=== PATIENT | male | born 1965 | race American Indian/Alaskan Native ===

== ENCOUNTER 2020-03-20 02:13 | Inpatient (IN) | payer OTHER ==
--- NOTE | 2020-03-20 02:31 | Emergency Department Report ---
ED Shortness of Breath HPI - General Chief Complaint: Dyspnea/Respdistress Stated Complaint: RESPIRATORY DISTRESS Time Seen by Provider: 03/20/20 02:25 Source: patient, EMS Mode of arrival: Stretcher Limitations: No Limitations - History of Present Illness Initial Comments: 55-year-old male with a past medical history of morbid obesity, elevated cholest jani, CHF, hypertension, sleep apnea, and lymphedema presents to the hospital complaining of acute onset of shortness of breath about 1 AM. Patient states he was sleeping, woke up coughing, and could not catch his breath. Patient complains of mild chest discomfort due to shortness of breath. Reports that patient was in respiratory distress with room air saturation 84% and tachypneic in the 30s upon their arrival. Patient was placed on CPAP with supplemental oxygen support with improvement in respiratory status. Patient also received sublingual nitroglycerin x1. No Lasix provided. Patient reports compliance with his medications including Lasix. Patient reports a dry cough but denies f ever, loss of sense of taste or smell, Covid exposure, or recent Covid testing. Patient found to be febrile upon ED arrival. He denies tobacco use or previous intubations. - Related Data Home Medications Medication Instructions Recorded Confirmed Last Taken Bumetanide [Bumetanide 2 mg tab] 2 mg PO BID 03/20/20 03/20/20 Unknown Ferrous Sulfate [Iron 325 MG] 325 mg PO QDAY 03/20/20 03/20/20 Unknown ISOSORBIDE MONOnitrate [Imdur ER] 45 mg PO DAILY 03/20/20 03/20/20 Unknown Loratadine [Claritin RAPDIS] 10 mg PO QDAY 03/20/20 03/20/20 Unknown Potassium Chloride [Klor-Con M15] 20 meq PO BID 03/20/20 03/20/20 Unknown Sacubitril/Valsartan [Entresto 97 1 each PO BID 03/20/20 03/20/20 Unknown mg-103 mg Tablet] allopurinoL [Zyloprim] 100 mg PO QDAY 03/20/20 03/20/20 Unknown carvediloL [Coreg] 25 mg PO BID 03/20/20 03/20/20 Unknown Previous Rx's Medication Instructions Recorded Last Taken Type Acetaminophen [Acetaminophen TAB] 650 mg PO Q6H PRN tablet 03/22/20 Unknown Rx Aspirin [Aspirin BABY CHEW TAB] 81 mg PO QDAY #30 tab.chew 03/22/20 Unknown Rx Ferrous Sulfate [Feosol 325 MG tab] 325 mg PO DAILY tablet 03/22/20 Unknown Rx Furosemide [Lasix TAB] 40 mg PO QDAY #30 tablet 03/22/20 Unknown Rx Sacubitril/Valsartan [Entresto 2 each PO BID tablet 03/22/20 Unknown Rx 49-51 mg] Tiotropium [Spiriva] 1 puff IH DAILY cap 03/22/20 Unknown Rx amLODIPine 5 mg PO DAILY #30 tablet 03/22/20 Unknown Rx carvediloL [Coreg] 12.5 mg PO BID #60 tablet 03/22/20 Unknown Rx levoFLOXacin [Levaquin] 750 mg PO QDAY #5 tablet 03/22/20 Unknown Rx Allergies Allergy/AdvReac Type Severity Reaction Status Date / Time No Known Allergies Allergy Verified 02/09/15 18:18 ED Review of Systems ROS: Stated complaint: RESPIRATORY DISTRESS Other details as noted in HPI Comment: All other systems reviewed and negative ED Past Medical Hx - Past Medical History Previous Medical History?: Yes Hx Hypertension: Yes Hx Congestive Heart Failure: Yes Additional medical history: LYMPHEDEMA RIGHT LEG. HIGH CHOLESTEROL. SLEEP APNEA. MORBID OBESITY - Social History Smoking Status: Never Smoker - Medications Home Medications: Home Medications Medication Instructions Recorded Confirmed Last Taken Type Bumetanide [Bumetanide 2 mg tab] 2 mg PO BID 03/20/20 03/20/20 Unknown History Ferrous Sulfate [Iron 325 MG] 325 mg PO QDAY 03/20/20 03/20/20 Unknown History ISOSORBIDE MONOnitrate [Imdur ER] 45 mg PO DAILY 03/20/20 03/20/20 Unknown History Loratadine [Claritin RAPDIS] 10 mg PO QDAY 03/20/20 03/20/20 Unknown History Potassium Chloride [Klor-Con M15] 20 meq PO BID 03/20/20 03/20/20 Unknown History Sacubitril/Valsartan [Entresto 97 1 each PO BID 03/20/20 03/20/20 Unknown History mg-103 mg Tablet] allopurinoL [Zyloprim] 100 mg PO QDAY 03/20/20 03/20/20 Unknown History carvediloL [Coreg] 25 mg PO BID 03/20/20 03/20/20 Unknown History Acetaminophen [Acetaminophen TAB] 650 mg PO Q6H PRN tablet 03/22/20 Unknown Rx Aspirin [Aspirin BABY CHEW TAB] 81 mg PO QDAY #30 tab.chew 03/22/20 Unknown Rx Ferrous Sulfate [Feosol 325 MG tab] 325 mg PO DAILY tablet 03/22/20 Unknown Rx Furosemide [Lasix TAB] 40 mg PO QDAY #30 tablet 03/22/20 Unknown Rx Sacubitril/Valsartan [Entresto 2 each PO BID tablet 03/22/20 Unknown Rx 49-51 mg] Tiotropium [Spiriva] 1 puff IH DAILY cap 03/22/20 Unknown Rx amLODIPine 5 mg PO DAILY #30 tablet 03/22/20 Unknown Rx carvediloL [Coreg] 12.5 mg PO BID #60 tablet 03/22/20 Unknown Rx levoFLOXacin [Levaquin] 750 mg PO QDAY #5 tablet 03/22/20 Unknown Rx ED Physical Exam - General Limitations: No Limitations - Other Other exam information: General: No acute distress Head: Atraumatic Eyes: normal appearance ENT: Moist mucous membranes Neck: Normal appearance, no midline tenderness Chest: Diminished breath sounds bilaterally CV: Tachycardic regular rhythm Abdomen: Soft, normal bowel sounds, nontender, nondistended, no rebound or guarding Back: Normal inspection Extremity: Bilateral lower extremity lymphedema Neuro: Alert O x 3, no facial asymmetry, speech clear, no gross motor sensory deficit Psych: Appropriate behavior Skin: No rash ED Course Vital Signs 03/20/20 03/20/20 03/20/20 02:27 02:29 02:30 Temperature 101.4 F H Pulse Rate 127 H 127 H 125 H Respiratory 31 H 34 H 35 H Rate Blood Pressure 111/47 111/47 Blood Pressure [Left] O2 Sat by Pulse 100 100 100 Oximetry 03/20/20 03/20/20 03/20/20 02:46 02:50 02:52 Temperature Pulse Rate 123 H 124 H Respiratory 31 H 20 Rate Blood Pressure 111/47 Blood Pressure [Left] O2 Sat by Pulse 100 98 Oximetry 03/20/20 03/20/20 03/20/20 02:55 03:00 03:16 Temperature Pulse Rate 127 H 128 H 122 H Respiratory 42 H 28 H 30 H Rate Blood Pressure 111/47 111/47 111/51 Blood Pressure [Left] O2 Sat by Pulse 100 100 100 Oximetry 03/20/20 03/20/20 03/20/20 03:30 03:46 04:00 Temperature Pulse Rate 114 H 117 H 111 H Respiratory 40 H 24 23 Rate Blood Pressure 134/72 134/72 129/75 Blood Pressure [Left] O2 Sat by Pulse 100 100 100 Oximetry 03/20/20 03/20/20 03/20/20 04:16 04:30 04:46 Temperature Pulse Rate 105 H 100 H 101 H Respiratory 30 H 32 H 24 Rate Blood Pressure 129/75 139/77 139/77 Blood Pressure [Left] O2 Sat by Pulse 100 100 100 Oximetry 03/20/20 03/20/20 03/20/20 05:00 05:38 05:46 Temperature Pulse Rate 97 H 98 H 97 H Respiratory 18 26 H 23 Rate Blood Pressure 136/90 144/74 Blood Pressure [Left] O2 Sat by Pulse 100 100 100 Oximetry 03/20/20 03/20/20 03/20/20 06:00 06:16 06:30 Temperature Pulse Rate 98 H 103 H 99 H Respiratory 27 H 25 H 21 Rate Blood Pressure 144/71 144/71 144/71 Blood Pressure [Left] O2 Sat by Pulse 100 100 Oximetry 03/20/20 03/20/20 03/20/20 06:46 07:00 07:16 Temperature Pulse Rate 99 H 93 H 88 Respiratory 28 H 28 H 23 Rate Blood Pressure 133/54 145/91 145/91 Blood Pressure [Left] O2 Sat by Pulse 100 100 100 Oximetry 03/20/20 03/20/20 03/20/20 07:30 07:46 08:16 Temperature Pulse Rate 97 H 85 88 Respiratory 26 H 21 20 Rate Blood Pressure 145/91 152/86 133/82 Blood Pressure [Left] O2 Sat by Pulse 98 100 Oximetry 03/20/20 03/20/20 03/20/20 08:21 08:46 09:00 Temperature Pulse Rate 86 85 81 Respiratory 25 H 21 21 Rate Blood Pressure 133/82 146/97 147/88 Blood Pressure [Left] O2 Sat by Pulse 100 100 Oximetry 03/20/20 03/20/20 03/20/20 09:30 10:00 10:30 Temperature Pulse Rate 84 92 H 80 Respiratory 22 19 17 Rate Blood Pressure 136/89 146/95 139/90 Blood Pressure [Left] O2 Sat by Pulse 100 Oximetry 03/20/20 03/20/20 03/20/20 10:46 11:14 11:20 Temperature Pulse Rate 80 80 87 Respiratory 20 17 28 H Rate Blood Pressure 139/90 129/90 Blood Pressure 129/90 [Left] O2 Sat by Pulse 100 99 100 Oximetry 03/20/20 03/20/20 03/20/20 11:30 11:40 11:50 Temperature Pulse Rate 81 78 74 Respiratory 27 H 17 16 Rate Blood Pressure 144/99 144/99 144/99 Blood Pressure [Left] O2 Sat by Pulse 100 66 L 92 Oximetry 03/20/20 03/20/20 12:00 12:10 Temperature Pulse Rate 78 Respiratory 28 H 21 Rate Blood Pressure 138/96 138/96 Blood Pressure [Left] O2 Sat by Pulse 100 100 Oximetry ED Medical Decision Making - Lab Data Result diagrams: 03/21/20 06:08 03/22/20 05:16 Lab Results 03/20/20 03/20/20 03/20/20 Range/Units 02:40 03:15 03:15 WBC 12.4 H (4.5-11.0) K/mm3 RBC 3.95 (3.65-5.03) M/mm3 Hgb 11.3 L (11.8-15.2) gm/dl Hct 33.7 L (35.5-45.6) % MCV 85 (84-94) fl MCH 29 (28-32) pg MCHC 34 (32-34) % RDW 17.5 H (13.2-15.2) % Plt Count 200 (140-440) K/mm3 Lymph % (Auto) 3.9 L (13.4-35.0) % [place] % (Auto) 7.4 H (0.0-7.3) % Eos % (Auto) 0.1 (0.0-4.3) % Baso % (Auto) 0.3 (0.0-1.8) % Lymph # (Auto) 0.5 L (1.2-5.4) K/mm3 [place] # (Auto) 0.9 H (0.0-0.8) K/mm3 Eos # (Auto) 0.0 (0.0-0.4) K/mm3 Baso # (Auto) 0.0 (0.0-0.1) K/mm3 Seg Neutrophils % 88.3 H (40.0-70.0) % Seg Neutrophils # 11.0 H (1.8-7.7) K/mm3 PT 15.6 H (12.2-14.9) Sec. INR 1.24 H (0.87-1.13) APTT 31.6 (24.2-36.6) Sec. D-Dimer 1504.29 H (0-234) ng/mlDDU ABG pH 7.389 (7.350-7.450) pH Units ABG pCO2 39.0 mm Hg ABG pO2 166.3 H (80.0-90.0) mm Hg ABG HCO3 23.0 (20.0-26.0) mmol/L ABG O2 Saturation 99.0 (95.0-99.0) % ABG O2 Content 16.3 (0.0-44) ABG Base Excess -1.8 (-2.0-3.0) mmol/L ABG Hemoglobin 11.7 L (14.0-18.0) gm/dl ABG Carboxyhemoglobin 1.4 (0.0-5.0) % ABG Methemoglobin 0.7 (0.0-1.5) % Oxyhemoglobin 97.0 (95.0-99.0) % FiO2 50 % Sodium (137-145) mmol/L Potassium (3.6-5.0) mmol/L Chloride (98-107) mmol/L Carbon Dioxide (22-30) mmol/L Anion Gap mmol/L BUN (9-20) mg/dL Creatinine (0.8-1.3) mg/dL Estimated GFR ml/min BUN/Creatinine Ratio % Glucose (75-100) mg/dL Lactic Acid (0.7-2.0) mmol/L Calcium (8.4-10.2) mg/dL Ferritin (30.0-300.0) ng/mL Total Bilirubin (0.1-1.2) mg/dL AST (5-40) units/L ALT (7-56) units/L Alkaline Phosphatase (35-129) units/L Lactate Dehydrogenase (91-180) units/L Troponin T (0.00-0.029) ng/mL C-Reactive Protein (0.00-1.30) mg/dL NT-Pro-B Natriuret Pep (0-900) pg/mL Total Protein (6.3-8.2) g/dL Albumin (3.9-5) g/dL Albumin/Globulin Ratio % Triglycerides (2-149) mg/dL Cholesterol (50-199) mg/dL LDL Cholesterol Direct (50-130) mg/dL HDL Cholesterol (40-59) mg/dL Cholesterol/HDL Ratio % Procalcitonin (<0.15) ng/mL 03/20/20 03/20/20 03/20/20 Range/Units 03:15 03:15 03:15 WBC (4.5-11.0) K/mm3 RBC (3.65-5.03) M/mm3 Hgb (11.8-15.2) gm/dl Hct (35.5-45.6) % MCV (84-94) fl MCH (28-32) pg MCHC (32-34) % RDW (13.2-15.2) % Plt Count (140-440) K/mm3 Lymph % (Auto) (13.4-35.0) % [place] % (Auto) (0.0-7.3) % Eos % (Auto) (0.0-4.3) % Baso % (Auto) (0.0-1.8) % Lymph # (Auto) (1.2-5.4) K/mm3 [place] # (Auto) (0.0-0.8) K/mm3 Eos # (Auto) (0.0-0.4) K/mm3 Baso # (Auto) (0.0-0.1) K/mm3 Seg Neutrophils % (40.0-70.0) % Seg Neutrophils # (1.8-7.7) K/mm3 PT (12.2-14.9) Sec. INR (0.87-1.13) APTT (24.2-36.6) Sec. D-Dimer (0-234) ng/mlDDU ABG pH (7.350-7.450) pH Units ABG pCO2 mm Hg ABG pO2 (80.0-90.0) mm Hg ABG HCO3 (20.0-26.0) mmol/L ABG O2 Saturation (95.0-99.0) % ABG O2 Content (0.0-44) ABG Base Excess (-2.0-3.0) mmol/L ABG Hemoglobin (14.0-18.0) gm/dl ABG Carboxyhemoglobin (0.0-5.0) % ABG Methemoglobin (0.0-1.5) % Oxyhemoglobin (95.0-99.0) % FiO2 % Sodium 138 (137-145) mmol/L Potassium 3.8 (3.6-5.0) mmol/L Chloride 102.4 (98-107) mmol/L Carbon Dioxide 23 (22-30) mmol/L Anion Gap 16 mmol/L BUN 33 H (9-20) mg/dL Creatinine 1.8 H (0.8-1.3) mg/dL Estimated GFR 48 ml/min BUN/Creatinine Ratio 18 % Glucose 142 H (75-100) mg/dL Lactic Acid 1.50 (0.7-2.0) mmol/L Calcium 8.9 (8.4-10.2) mg/dL Ferritin (30.0-300.0) ng/mL Total Bilirubin 0.60 (0.1-1.2) mg/dL AST 34 (5-40) units/L ALT 32 (7-56) units/L Alkaline Phosphatase 84 (35-129) units/L Lactate Dehydrogenase (91-180) units/L Troponin T 0.055 H (0.00-0.029) ng/mL C-Reactive Protein (0.00-1.30) mg/dL NT-Pro-B Natriuret Pep 508.7 (0-900) pg/mL Total Protein 7.9 (6.3-8.2) g/dL Albumin 3.6 L (3.9-5) g/dL Albumin/Globulin Ratio 0.8 % Triglycerides 107 (2-149) mg/dL Cholesterol 141 (50-199) mg/dL LDL Cholesterol Direct 88 (50-130) mg/dL HDL Cholesterol 37 L (40-59) mg/dL Cholesterol/HDL Ratio 3.81 % Procalcitonin (<0.15) ng/mL 03/20/20 03/20/20 03/20/20 Range/Units 03:15 03:15 03:15 WBC (4.5-11.0) K/mm3 RBC (3.65-5.03) M/mm3 Hgb (11.8-15.2) gm/dl Hct (35.5-45.6) % MCV (84-94) fl MCH (28-32) pg MCHC (32-34) % RDW (13.2-15.2) % Plt Count (140-440) K/mm3 Lymph % (Auto) (13.4-35.0) % [place] % (Auto) (0.0-7.3) % Eos % (Auto) (0.0-4.3) % Baso % (Auto) (0.0-1.8) % Lymph # (Auto) (1.2-5.4) K/mm3 [place] # (Auto) (0.0-0.8) K/mm3 Eos # (Auto) (0.0-0.4) K/mm3 Baso # (Auto) (0.0-0.1) K/mm3 Seg Neutrophils % (40.0-70.0) % Seg Neutrophils # (1.8-7.7) K/mm3 PT (12.2-14.9) Sec. INR (0.87-1.13) APTT (24.2-36.6) Sec. D-Dimer (0-234) ng/mlDDU ABG pH (7.350-7.450) pH Units ABG pCO2 mm Hg ABG pO2 (80.0-90.0) mm Hg ABG HCO3 (20.0-26.0) mmol/L ABG O2 Saturation (95.0-99.0) % ABG O2 Content (0.0-44) ABG Base Excess (-2.0-3.0) mmol/L ABG Hemoglobin (14.0-18.0) gm/dl ABG Carboxyhemoglobin (0.0-5.0) % ABG Methemoglobin (0.0-1.5) % Oxyhemoglobin (95.0-99.0) % FiO2 % Sodium (137-145) mmol/L Potassium (3.6-5.0) mmol/L Chloride (98-107) mmol/L Carbon Dioxide (22-30) mmol/L Anion Gap mmol/L BUN (9-20) mg/dL Creatinine (0.8-1.3) mg/dL Estimated GFR ml/min BUN/Creatinine Ratio % Glucose 140 H (75-100) mg/dL Lactic Acid (0.7-2.0) mmol/L Calcium (8.4-10.2) mg/dL Ferritin 451.3 H (30.0-300.0) ng/mL Total Bilirubin (0.1-1.2) mg/dL AST (5-40) units/L ALT (7-56) units/L Alkaline Phosphatase (35-129) units/L Lactate Dehydrogenase 181 H (91-180) units/L Troponin T (0.00-0.029) ng/mL C-Reactive Protein 15.90 H (0.00-1.30) mg/dL NT-Pro-B Natriuret Pep (0-900) pg/mL Total Protein (6.3-8.2) g/dL Albumin (3.9-5) g/dL Albumin/Globulin Ratio % Triglycerides (2-149) mg/dL Cholesterol (50-199) mg/dL LDL Cholesterol Direct (50-130) mg/dL HDL Cholesterol (40-59) mg/dL Cholesterol/HDL Ratio % Procalcitonin 4.62 (<0.15) ng/mL 03/20/20 03/20/20 Range/Units 05:43 05:43 WBC (4.5-11.0) K/mm3 RBC (3.65-5.03) M/mm3 Hgb (11.8-15.2) gm/dl Hct (35.5-45.6) % MCV (84-94) fl MCH (28-32) pg MCHC (32-34) % RDW (13.2-15.2) % Plt Count (140-440) K/mm3 Lymph % (Auto) (13.4-35.0) % [place] % (Auto) (0.0-7.3) % Eos % (Auto) (0.0-4.3) % Baso % (Auto) (0.0-1.8) % Lymph # (Auto) (1.2-5.4) K/mm3 [place] # (Auto) (0.0-0.8) K/mm3 Eos # (Auto) (0.0-0.4) K/mm3 Baso # (Auto) (0.0-0.1) K/mm3 Seg Neutrophils % (40.0-70.0) % Seg Neutrophils # (1.8-7.7) K/mm3 PT (12.2-14.9) Sec. INR (0.87-1.13) APTT (24.2-36.6) Sec. D-Dimer (0-234) ng/mlDDU ABG pH (7.350-7.450) pH Units ABG pCO2 mm Hg ABG pO2 (80.0-90.0) mm Hg ABG HCO3 (20.0-26.0) mmol/L ABG O2 Saturation (95.0-99.0) % ABG O2 Content (0.0-44) ABG Base Excess (-2.0-3.0) mmol/L ABG Hemoglobin (14.0-18.0) gm/dl ABG Carboxyhemoglobin (0.0-5.0) % ABG Methemoglobin (0.0-1.5) % Oxyhemoglobin (95.0-99.0) % FiO2 % Sodium (137-145) mmol/L Potassium (3.6-5.0) mmol/L Chloride (98-107) mmol/L Carbon Dioxide (22-30) mmol/L Anion Gap mmol/L BUN (9-20) mg/dL Creatinine (0.8-1.3) mg/dL Estimated GFR ml/min BUN/Creatinine Ratio % Glucose (75-100) mg/dL Lactic Acid 1.00 (0.7-2.0) mmol/L Calcium (8.4-10.2) mg/dL Ferritin (30.0-300.0) ng/mL Total Bilirubin (0.1-1.2) mg/dL AST (5-40) units/L ALT (7-56) units/L Alkaline Phosphatase (35-129) units/L Lactate Dehydrogenase (91-180) units/L Troponin T 0.079 H D (0.00-0.029) ng/mL C-Reactive Protein (0.00-1.30) mg/dL NT-Pro-B Natriuret Pep (0-900) pg/mL Total Protein (6.3-8.2) g/dL Albumin (3.9-5) g/dL Albumin/Globulin Ratio % Triglycerides (2-149) mg/dL Cholesterol (50-199) mg/dL LDL Cholesterol Direct (50-130) mg/dL HDL Cholesterol (40-59) mg/dL Cholesterol/HDL Ratio % Procalcitonin (<0.15) ng/mL - EKG Data -: EKG Interpreted by Me EKG shows normal: sinus rhythm, ST-T waves (No ST elevation WI) Rate: tachycardia (128) - EKG Data When compared to previous EKG there are: previous EKG unavailable - Radiology Data Radiology results: report reviewed CHEST 1 VIEW INDICATION / CLINICAL INFORMATION: Dyspnea, fever. COMPARISON: Chest radiograph 09/10/2012 FINDINGS: SUPPORT DEVICES: None. HEART / MEDIASTINUM: No significant abnormality. LUNGS / PLEURA: There is suggestion of mild patchy left retrocardiac opacity. The right lung appears clear. No large pleural effusion. No pneumothorax. ADDITIONAL FINDINGS: No significant additional findings. IMPRESSION: 1. Suggestion of mild patchy left retrocardiac opacity which may reflect atelectasis versus pneumonia. - Medical Decision Making 55-year-old male presents to the hospital with respiratory distress and fever. X-ray suggestive of pneumonia or atelectasis patient had an elevated D-dimer with hypoxia therefore CT angiogram performed. Patient treated with Rocephin azithromycin for pneumonia, placed in respiratory isolation, and Covid order set initiated. Decadron 6 mg ordered. BiPAP initiated for respiratory support. Patient has mild elevation in troponin with renal insufficiency. No ST elevation noted on EKG. Repeat troponin pending. Aspirin provided. ID consult ordered Critical Care Time: Yes Critical care time in (mins) excluding proc time.: 35 Critical care attestation.: If time is entered above; I have spent that time in minutes in the direct care of this critically ill patient, excluding procedure time. ED Disposition Clinical Impression: Respiratory failure, Fever, Pneumonia, Renal insufficiency, Elevated troponin Disposition: OP ADMIT IP TO THIS HOSP Is pt being admited?: Yes Condition: Stable
[2020-03-20] MEDS ORDERED: ACETAMINOPHEN 325 MG TAB PO ONE (02:42)
[2020-03-20 02:58] LABS: ABG Base Excess -1.8 mmol/L (-2.0-3.0); ABG Methemoglobin 0.7 % (0.0-1.5); ABG PH 7.389 pH Units (7.350-7.450); ABG PO2 166.3 mm Hg (80.0-90.0)
[2020-03-20 03:40] LABS: Basophils % (Auto) 0.3 % (0.0-1.8); Eosinophils % (Auto) 0.1 % (0.0-4.3); Hematocrit 33.7 % (35.5-45.6); Hemoglobin 11.3 gm/dl (11.8-15.2); Lymphocytes # (Auto) 0.5 K/mm3 (1.2-5.4); Lymphocytes % (Auto) 3.9 % (13.4-35.0); Mean Corpuscular HGB Conc 34 % (32-34); Mean Corpuscular Volume 85 fl (84-94); Monocytes # (Auto) 0.9 K/mm3 (0.0-0.8); Monocytes % (Auto) 7.4 % (0.0-7.3); Platelet Count 200 K/mm3 (140-440); Red Blood Count 3.95 M/mm3 (3.65-5.03); Red Cell Distribution Width 17.5 % (13.2-15.2)
[2020-03-20 03:51] LABS: Albumin 3.6 g/dL (3.9-5); Calcium 8.9 mg/dL (8.4-10.2)
--- NOTE | 2020-03-20 03:51 | XRay Report ---
CHEST 1 VIEW INDICATION / CLINICAL INFORMATION: Dyspnea, fever. COMPARISON: Chest radiograph 09/10/2012 FINDINGS: SUPPORT DEVICES: None. HEART / MEDIASTINUM: No significant abnormality. LUNGS / PLEURA: There is suggestion of mild patchy left retrocardiac opacity. The right lung appears clear. No large pleural effusion. No pneumothorax. ADDITIONAL FINDINGS: No significant additional findings. IMPRESSION: 1. Suggestion of mild patchy left retrocardiac opacity which may reflect atelectasis versus pneumonia . Signer Name: Sammi Varela MD Signed: 03/20/2020 3:47 AM Workstation Name: [id number]
[2020-03-20 03:57] LABS: INR 1.24 (0.87-1.13)
[2020-03-20 03:58] LABS: Partial Thromboplastin Time 31.6 Sec. (24.2-36.6)
[2020-03-20 04:14] LABS: C-Reactive Protein 15.9 mg/dL (0.00-1.30)
[2020-03-20 04:30] LABS: Chol/HDL Ratio 3.81 %
[2020-03-20] MEDS ORDERED: dexAMETHasone 4 MG/ML VIAL IV ONE (05:41)
[2020-03-20] MEDS ORDERED: ASPIRIN 325 MG TAB PO ONE (05:44)
--- NOTE | 2020-03-20 06:07 | Cat Scan Report ---
CTA CHEST WITH IV CONTRAST INDICATION / CLINICAL INFORMATION: P.E. PROTOCOL, Hypoxia, fever, elevated D-dimer. TECHNIQUE: Axial CT images were obtained through the chest after injection of 100 mL Omnipaque 350 IV contrast. 3 plane MIP and/or 3D reconstructions were produced. All CT scans at this location are performed usin g CT dose reduction for ALARA by means of automated exposure control. COMPARISON: Chest radiograph same day FINDINGS: PULMONARY ARTERIES: Evaluation of the subsegmental pulmonary arteries is slightly degraded by motion. No large central or segmental pulmonary embolus identified. THORACIC AORTA: No significant abnormality. HEART: No significant abnormality. CORONARY ARTERIES: No significant calcification. PLEURA: No pleural effusion. No pneumothorax. LYMPH NODES: No significant adenopathy. LUNGS: No acute air space or interstitial disease. Subsegmental atelectatic change. ADDITIONAL FINDINGS: None. UPPER ABDOMEN: No acute findings. Bilateral renal cysts. SKELETAL STRUCTURES: No significant osseous abnormality. IMPRESSION: 1. Evaluation of the subsegmental pulmonary arteries is motion degraded. No large central or segmenta l pulmonary embolus identified. 2. No acute findings. Signer Name: Sammi Varela MD Signed: 03/20/2020 6:03 AM Workstation Name: [id number]
[2020-03-20] MEDS: cefTRIAXone/NS 2 GM/100 ML 2 GM/100 ML BAG IV SCH (07:45)
[2020-03-20] MEDS: AZITHROMYCIN 500 MG in SODIUM CHLORIDE 0.9% 250ML 250 ML IV SCH (08:18)
--- NOTE | 2020-03-20 08:18 | History and Physical Report ---
History of Present Illness Date of examination: 03/20/20 Date of admission: 03/20/20 06:25 History of present illness: 55 year old male with nonischimic cardiomyopathy, HFrEF, HTN, HLD, morbid o besity, NATHAN on CPAP, gout and lymphedema who presented to the ED on 03/20 with a sudden onset of shortness of breath, dry cough, transient midsternal pressure (initially was a 6/10 and has been relieved with nitroglycerin given via EMS) and fever at 0100 which awakened him from sleep. Upon arrival of EMS patient was found to be in respiratory distress with saturation of 85% on room air and tachypneic into the 30s and he was placed on CPAP with improvement in his respiratory status. Patient denies loss of sense of taste or smell, fatigue, chills, nausea/vomiting/diarrhea, hemoptysis, recent weight loss, or night sweats. Patient denies any exposure to sick persons or known exposure to COVID- 19. Work-up in the emergency department revealed acute kidney injury (CR 1.8/33), elevated D-dimer at 1504, leukocytosis at 12.4 and his chest x-ray showed mild patchy left retrocardiac opacity which may reflect atelectasis versus pneumonia, elevated troponin (0.055, 0.079), and elevated COVID-19 inflammatory markers. At the time of examination patient was on a BiPAP but has since been weaned down therefore will be downgraded from IMCU to MedSurg. Patient is a COVID-19 PUI. Infectious disease and cardiology have been consulted. Patient will be admitted to the hospitalist service for sepsis, DANAY, rule out COVID-19, CAP, acute respiratory failure, and elevated troponins. Home medications reconciled and prior visits reviewed. Advance care planning conducted in the emergency department. Past History Past Medical History: COPD, hypertension, other (Lymphedema, morbid obesity, obstructive sleep apnea on home CPAP) Past Surgical History: No surgical history Social history: single, lives with family, full code. denies: smoking, alcohol abuse, prescription drug abuse, IV drug use Family history: diabetes, hypertension Medications and Allergies Allergies Allergy/AdvReac Type Severity Reaction Status Date / Time No Known Allergies Allergy Verified 02/09/15 18:18 Home Medications Medication Instructions Recorded Confirmed Last Taken Type Bumetanide [Bumetanide 2 mg tab] 2 mg PO BID 03/20/20 03/20/20 Unknown History Ferrous Sulfate [Iron 325 MG] 325 mg PO QDAY 03/20/20 03/20/20 Unknown History Furosemide [Lasix] 20 mg PO QDAY 03/20/20 03/20/20 Unknown History ISOSORBIDE MONOnitrate [Imdur ER] 45 mg PO DAILY 03/20/20 03/20/20 Unknown History Loratadine [Claritin RAPDIS] 10 mg PO QDAY 03/20/20 03/20/20 Unknown History Potassium Chloride [Klor-Con M15] 20 meq PO BID 03/20/20 03/20/20 Unknown History Sacubitril/Valsartan [Entresto 97 1 each PO BID 03/20/20 03/20/20 Unknown History mg-103 mg Tablet] allopurinoL [Zyloprim] 100 mg PO QDAY 03/20/20 03/20/20 Unknown History carvediloL [Coreg] 25 mg PO BID 03/20/20 03/20/20 Unknown History Active Meds: Active Medications Amlodipine Besylate (Amlodipine) 5 mg PO DAILY [facility] Dexamethasone (Decadron) 6 mg PO DAILY [facility] Ferrous Sulfate (Feosol) mg PO DAILY [facility] Ceftriaxone Sodium (Rocephin/Ns 2 Gm/100 Ml) 2 gm in 100 mls @ 200 mls/hr IV Q24HR@0600 [facility]; Protocol Azithromycin 500 mg/ Sodium (Chloride) 250 mls @ 250 mls/hr IV Q24HR@0600 [facility]; Protocol Miscellaneous Medication (Omeprazole [Prilosec]) 40 mg PO DAILY [facility] Miscellaneous Medication (Simvastatin [Simvastatin]) 1 tab PO DAILY [facility] Tiotropium [place] (Spiriva) 1 puff IH DAILY [facility] Review of Systems Constitutional: fever, no weight loss, no weight gain, no chills, no sweats, no night sweats, no anorexia, no fatigue, no weakness, no malaise, no lethargy Ears, nose, mouth and throat: no ear pain, no ear discharge, no tinnitis, no decreased hearing, no nose pain, no nasal congestion, no nasal discharge, no sinus pressure, no sinus pain, no epistaxis, no bleeding gums, no dental pain, no mouth pain, no dysphagia, no hoarseness, no sore throat, no post-nasal drip Cardiovascular: chest pain, shortness of breath, high blood pressure, leg edema, no orthopnea, no palpitations, no rapid/irregular heart beat, no edema, no syncope, no lightheadedness, no dyspnea on exertion, no paroxysmal nocturnal dyspnea, no claudication Respiratory: cough, shortness of breath, sleep apnea, no cough with sputum, no excessive sputum, no hemoptysis, no dyspnea on exertion, no congestion, no wheezing, no pleurisy, no pain, no pain on inspiration, no home oxygen Gastrointestinal: no abdominal pain, no nausea, no vomiting, no diarrhea, no constipation, no change in bowel habits, no hematemesis, no coffee ground emesis, no BRBPR, no melena, no hematochezia, no loss of appetite, no heartburn Genitourinary Male: no hematuria, no flank pain, no discharge, no urinary frequency, no urinary hesitancy, no nocturia, no polyuria Rectal: no incontinence, no bleeding Musculoskeletal: no neck stiffness, no neck pain, no shooting arm pain, no arm numbness/tingling, no low back pain, no shooting leg pain, no leg numbness/tingling, no redness of joints, no hot joints, no frequent falls, no fractures Integumentary: no rash, no pruritis, no redness, no sores, no wounds Neurological: no head injury, no transient paralysis, no paralysis, no weakness, no parathesias, no numbness, no tingling, no seizures, no syncope, no tremors, no vertigo, no headaches, no confusion Psychiatric: no anxiety, no memory loss, no change in sleep habits, no sleep disturbances, no insomnia, no hypersomnia, no change in appetite, no change in libido, no suicidal ideation Endocrine: no cold intolerance, no heat intolerance, no polyphagia, no excessive thirst, no polydipsia, no polyuria, no nocturia, no excessive sweating, no flushing, no weight change, no increase in ring/shoe/hat size, no palpatations Hematologic/Lymphatic: no easy bruising, no easy bleeding Allergic/Immunologic: no urticaria, no allergic rhinitis, no wheezing Exam - Constitutional Vitals: Temp Pulse Resp BP Pulse Ox 101.4 F H 97 H 26 H 145/91 98 03/20/20 02:27 03/20/20 07:30 03/20/20 07:30 03/20/20 07:30 03/20/20 07:30 General appearance: Present: no acute distress - EENT Eyes: Present: PERRL, EOM intact ENT: hearing intact, clear oral mucosa, dentition normal - Neck Neck: Present: normal ROM - Respiratory Respiratory effort: normal Respiratory: bilateral: diminished - Cardiovascular Rhythm: regular Heart Sounds: Present: S1 & S2. Absent: systolic murmur, diastolic murmur - Extremities Extremities: no ischemia, pulses intact, pulses symmetrical, normal temperature, normal color, Full ROM Extremity abnormal: edema - Peripheral Assessment Bilateral Lower Extremity Edema Type: Non-pitting Capillary Refill: < 3 seconds Skin Temperature: Cool Peripheral Pulses: within normal limits - Abdominal General gastrointestinal: Present: soft, non-tender, non-distended, normal bowel sounds - Integumentary Integumentary: Present: clear, warm, dry - Musculoskeletal Musculoskeletal: strength equal bilaterally - Psychiatric Psychiatric: appropriate mood/affect, cooperative - Neurologic Neurologic: no CNII-XII intact, no focal deficits, moves all extremities - Allied Health Allied health notes reviewed: nursing HEART Score - HEART Score History: Moderately suspicious EKG: Normal Age: 45-65 Risk factors: > 3 risk factors or hx of atherosclerotic disease Troponin: Troponin T 0.079 ng/mL (0.00-0.029) H D 03/20/20 05:43 Troponin: 1-3x normal limit HEART Score: 5 Results - Labs CBC & Chem 7: 03/20/20 03:15 03/20/20 03:15 Labs: Laboratory Last Values WBC 12.4 K/mm3 (4.5-11.0) H 03/20/20 03:15 RBC 3.95 M/mm3 (3.65-5.03) 03/20/20 03:15 Hgb 11.3 gm/dl (11.8-15.2) L 03/20/20 03:15 Hct 33.7 % (35.5-45.6) L 03/20/20 03:15 MCV 85 fl (84-94) 03/20/20 03:15 MCH 29 pg (28-32) 03/20/20 03:15 MCHC 34 % (32-34) 03/20/20 03:15 RDW 17.5 % (13.2-15.2) H 03/20/20 03:15 Plt Count 200 K/mm3 (140-440) 03/20/20 03:15 Lymph % (Auto) 3.9 % (13.4-35.0) L 03/20/20 03:15 [place] % (Auto) 7.4 % (0.0-7.3) H 03/20/20 03:15 Eos % (Auto) 0.1 % (0.0-4.3) 03/20/20 03:15 Baso % (Auto) 0.3 % (0.0-1.8) 03/20/20 03:15 Lymph # (Auto) 0.5 K/mm3 (1.2-5.4) L 03/20/20 03:15 [place] # (Auto) 0.9 K/mm3 (0.0-0.8) H 03/20/20 03:15 Eos # (Auto) 0.0 K/mm3 (0.0-0.4) 03/20/20 03:15 Baso # (Auto) 0.0 K/mm3 (0.0-0.1) 03/20/20 03:15 Seg Neutrophils % 88.3 % (40.0-70.0) H 03/20/20 03:15 Seg Neutrophils # 11.0 K/mm3 (1.8-7.7) H 03/20/20 03:15 PT 15.6 Sec. (12.2-14.9) H 03/20/20 03:15 INR 1.24 (0.87-1.13) H 03/20/20 03:15 APTT 31.6 Sec. (24.2-36.6) 03/20/20 03:15 D-Dimer 1504.29 ng/mlDDU (0-234) H 03/20/20 03:15 ABG pH 7.389 pH Units (7.350-7.450) 03/20/20 02:40 ABG pCO2 39.0 mm Hg 03/20/20 02:40 ABG pO2 166.3 mm Hg (80.0-90.0) H 03/20/20 02:40 ABG HCO3 23.0 mmol/L (20.0-26.0) 03/20/20 02:40 ABG O2 Saturation 99.0 % (95.0-99.0) 03/20/20 02:40 ABG O2 Content 16.3 (0.0-44) 03/20/20 02:40 ABG Base Excess -1.8 mmol/L (-2.0-3.0) 03/20/20 02:40 ABG Hemoglobin 11.7 gm/dl (14.0-18.0) L 03/20/20 02:40 ABG Carboxyhemoglobin 1.4 % (0.0-5.0) 03/20/20 02:40 ABG Methemoglobin 0.7 % (0.0-1.5) 03/20/20 02:40 Oxyhemoglobin 97.0 % (95.0-99.0) 03/20/20 02:40 FiO2 50 % 03/20/20 02:40 Sodium 138 mmol/L (137-145) 03/20/20 03:15 Potassium 3.8 mmol/L (3.6-5.0) 03/20/20 03:15 Chloride 102.4 mmol/L (98-107) 03/20/20 03:15 Carbon Dioxide 23 mmol/L (22-30) 03/20/20 03:15 Anion Gap 16 mmol/L 03/20/20 03:15 BUN 33 mg/dL (9-20) H 03/20/20 03:15 Creatinine 1.8 mg/dL (0.8-1.3) H 03/20/20 03:15 Estimated GFR 48 ml/min 03/20/20 03:15 BUN/Creatinine Ratio 18 % 03/20/20 03:15 Glucose 140 mg/dL (75-100) H 03/20/20 03:15 Glucose 142 mg/dL (75-100) H 03/20/20 03:15 Lactic Acid 1.00 mmol/L (0.7-2.0) 03/20/20 05:43 Calcium 8.9 mg/dL (8.4-10.2) 03/20/20 03:15 Ferritin 451.3 ng/mL (30.0-300.0) H 03/20/20 03:15 Total Bilirubin 0.60 mg/dL (0.1-1.2) 03/20/20 03:15 AST 34 units/L (5-40) 03/20/20 03:15 ALT 32 units/L (7-56) 03/20/20 03:15 Alkaline Phosphatase 84 units/L (35-129) 03/20/20 03:15 Lactate Dehydrogenase 181 units/L (91-180) H 03/20/20 03:15 Troponin T 0.079 ng/mL (0.00-0.029) H D 03/20/20 05:43 C-Reactive Protein 15.90 mg/dL (0.00-1.30) H 03/20/20 03:15 NT-Pro-B Natriuret Pep 508.7 pg/mL (0-900) 03/20/20 03:15 Total Protein 7.9 g/dL (6.3-8.2) 03/20/20 03:15 Albumin 3.6 g/dL (3.9-5) L 03/20/20 03:15 Albumin/Globulin Ratio 0.8 % 03/20/20 03:15 Triglycerides 107 mg/dL (2-149) 03/20/20 03:15 Cholesterol 141 mg/dL (50-199) 03/20/20 03:15 LDL Cholesterol Direct 88 mg/dL (50-130) 03/20/20 03:15 HDL Cholesterol 37 mg/dL (40-59) L 03/20/20 03:15 Cholesterol/HDL Ratio 3.81 % 03/20/20 03:15 Microbiology: Microbiology 03/20/20 03:15 Peripheral/Venous Blood Culture - Preliminary Culture in Progress 03/20/20 02:49 Peripheral/Venous Blood Culture - Preliminary Culture in Progress - Imaging and Cardiology Chest x-ray: report reviewed, image reviewed CT scan - chest: report reviewed - Diagnostic Impressions Diagnostic Impressions: 03/20 CXR shows suggestion of a mild patchy left retrocardiac opacity which may reflect atelectasis versus pneumonia with no large pleural effusion or pneumothorax 03/30 CTA chest shows no large central or segmental pulmonary embolism identified, bilateral renal cysts with no acute findings Shukla/IV: IV Catheter Type [Left INT / Saline Lock Antecubital] Assessment and Plan - Patient Problems (1) Sepsis Current Visit: Yes Status: Acute Plan to address problem: Presented with tachycardia, tachypnea, acute on chronic respiratory failure, febrile, leukocytosis, acute kidney injury and PNA on cxr Infectious disease consulted Initiated on antibiotic therapy Trend CBC 03/20 BC x2 culture in progress (2) Person under investigation for COVID-19 Current Visit: Yes Status: Acute Plan to address problem: 03/20 COVID-19 PCR pending 03/20 CXR shows suggestion of a mild patchy left retrocardiac opacity which may reflect atelectasis versus pneumonia with no large pleural effusion or pneumothorax. Infectious disease consulted Antibiotic therapy Trend inflammatory markers OOB 3 times daily Prone to sleep Supplemental oxygenation as needed Pulmonary hygiene S/p dexamethasone in the ED Dexamethasone 6 mg p.o. daily for 10 days (03/20 through 03/30) Anticoagulation per protocol (3) Acute kidney injury Current Visit: Yes Status: Acute Plan to address problem: Presented with creatinine/BUN 1. Unknown baseline Patient is on ACEi and diuretic therapy for CHF at home Strict intake and output Trend BMP Daily weights Consult nephrology if decreasing Hold nephrotoxic medications at this time Renally dose medications (4) Elevated troponin Current Visit: Yes Status: Acute Plan to address problem: Presented with transient midsternal chest pressure which was relieved with nitroglycerin 03/20 troponin 0 0.055, 0.079 Cardiology consulted Trend troponin ECG as needed (5) Pneumonia Current Visit: Yes Status: Suspected Qualifiers: Laterality: left Plan to address problem: 03/20 CXR shows suggestion of a mild patchy left retrocardiac opacity which may reflect atelectasis versus pneumonia with no large pleural effusion or pneumothorax Antibiotic therapy Covid PUI Supplemental oxygen as needed Pulmonary hygiene (6) Acute respiratory failure Current Visit: Yes Status: Acute Qualifiers: Respiratory failure complication: hypoxia Qualified Code(s): J96.01 - Acute respiratory failure with hypoxia Plan to address problem: Patient was hypoxic and tachypneic upon arrival of EMS Patient was placed on BiPAP by EMS and since has been weaned off to nasal cannula in the emergency department Supplemental oxygen as needed Pulmonary hygiene Patient does not use any oxygen at home however has NATHAN and uses home CPAP at night (7) Acute on chronic HFrEF (heart failure with reduced ejection fraction) Current Visit: Yes Status: Acute Plan to address problem: Cardiology consult 03/20 proBNP 508 IV Lasix, resume home beta-jose Per cardiology: 04/2018 TTE showed EF of 20 to 25%, mild MR, mild TR, RA mildly dilated 05/2018 left and right heart cath showed normal coronaries, mild pulmonary hypertension, normal cardiac output and cardiac index Follow-up TTE post COVID-19 results (8) Elevated d-dimer Current Visit: Yes Status: Acute Plan to address problem: Presented with a D-dimer of 1504 03/30 CTA chest shows no large central or segmental pulmonary embolism identified, bilateral renal cysts with no acute findings. Trend COVID-19 found to markers including D-dimer Prophylaxis per COVID-19 protocol (9) Morbid obesity with BMI of 50.0-59.9, adult Current Visit: No Status: Chronic Plan to address problem: Weight loss counseling Dietary modifications and increase physical activity upon discharge Consider bariatric surgery if warranted (10) NATHAN (obstructive sleep apnea) Current Visit: Yes Status: Chronic Plan to address problem: Continue home CPAP machine at night (11) GERD (gastroesophageal reflux disease) Current Visit: No Status: Chronic Plan to address problem: Continue home Protonix (12) HTN (hypertension) Current Visit: Yes Status: Chronic Plan to address problem: Hold Entresto in setting of acute kidney injury Resume home metoprolol and amlodipine IV Lasix therapy for now Blood pressure monitoring per protocol (13) Lymphedema Current Visit: Yes Status: Chronic Plan to address problem: Supportive care Elevate bilateral lower extremities while in bed (14) Gout Current Visit: Yes Status: Chronic Plan to address problem: Resume home allopurinol Supportive care (15) HLD (hyperlipidemia) Current Visit: Yes Status: Chronic Plan to address problem: Resume home statin therapy (16) DVT prophylaxis Current Visit: Yes Status: Acute Plan to address problem: Heparin subcu in setting of DANAY SCDs to bilateral extremities while in bed (17) Full code status Current Visit: Yes Status: Acute
[2020-03-20] MEDS ORDERED: ACETAMINOPHEN 325 MG TAB PO PRN (09:18)
[2020-03-20] MEDS ORDERED: ALBUTEROL 2.5 MG/3 ML NEBU IH PRN (09:21)
[2020-03-20] MEDS ORDERED: cefTRIAXone/NS 2 GM/100 ML 2 GM/100 ML BAG IV SCH (10:00)
[2020-03-20] MEDS ORDERED: OMEPRAZOLE 40 MG PO SCH (10:00)
[2020-03-20] MEDS ORDERED: AZITHROMYCIN 500 MG in SODIUM CHLORIDE 0.9% 250ML 250 ML IV SCH (10:00)
[2020-03-20] MEDS ORDERED: amLODIPine 5 MG TAB PO SCH (10:00)
[2020-03-20] MEDS ORDERED: SIMVASTATIN PO SCH (10:00)
--- NOTE | 2020-03-20 10:16 | Consultation ---
History of Present Illness Consult date: 03/20/20 Requesting physician: PATRICIA BOO Consult reason: congestive heart failure, elevated troponin History of present illness: The pt is a 55-year-old male with a past medical history of NICMP, normal coronaries via LHC 05/2018, HFrEF, HTN, HLP, morbid obesity, sleep apnea, lymphedema. He has been followed in our office in the past by Dr. Dickey (last seen 09/2017). He presented with c/o acute onset SOB since 1AM today. Patient states he was sleeping, woke up coughing, and could not catch his breath. EMS reported that patient was in respiratory distress with room air saturation 84% and tachypneic in the 30s upon their arrival. Patient was placed on CPAP with supplemental oxygen support with improvement in respiratory status. Patient reports compliance with his medications including Lasix. Patient reports a dry cough but denies fever, loss of sense of taste or smell, Covid exposure, or recent Covid testing. Patient found to be febrile upon ED arrival, he is currently COVID-19 PUI. tte done 04/2018 showed EF 20-25%, mild MR, mild TR, RA mildly dilated. LHC and RHC done 05/2018 showed normal coronaries, mild pulm HTN, normal CO & CI. Past History Past Medical History: other (as per HPI) Medications and Allergies Allergies Allergy/AdvReac Type Severity Reaction Status Date / Time No Known Allergies Allergy Verified 02/09/15 18:18 Home Medications Medication Instructions Recorded Confirmed Last Taken Type Bumetanide [Bumetanide 2 mg tab] 2 mg PO BID 03/20/20 03/20/20 Unknown History Ferrous Sulfate [Iron 325 MG] 325 mg PO QDAY 03/20/20 03/20/20 Unknown History Furosemide [Lasix] 20 mg PO QDAY 03/20/20 03/20/20 Unknown History ISOSORBIDE MONOnitrate [Imdur ER] 45 mg PO DAILY 03/20/20 03/20/20 Unknown History Loratadine [Claritin RAPDIS] 10 mg PO QDAY 03/20/20 03/20/20 Unknown History Potassium Chloride [Klor-Con M15] 20 meq PO BID 03/20/20 03/20/20 Unknown History Sacubitril/Valsartan [Entresto 97 1 each PO BID 03/20/20 03/20/20 Unknown History mg-103 mg Tablet] allopurinoL [Zyloprim] 100 mg PO QDAY 03/20/20 03/20/20 Unknown History carvediloL [Coreg] 25 mg PO BID 03/20/20 03/20/20 Unknown History Active Meds: Active Medications Acetaminophen (Tylenol) 650 mg PO Q6H PRN PRN Reason: Pain MILD(1-3)/Fever >100.5/[place]ORD[place] Albuterol (Proventil) 2.5 mg IH Q4HRT PRN PRN Reason: Shortness Of Breath Amlodipine Besylate (Amlodipine) 5 mg PO DAILY [facility] Dexamethasone (Decadron) 6 mg PO DAILY [facility] Stop: 03/29/20 10:01 Ferrous Sulfate (Feosol) 325 mg PO DAILY [facility] Heparin Sodium (Porcine) (Heparin) 5,000 unit SUB-Q Q8HR [facility] Ceftriaxone Sodium (Rocephin/Ns 2 Gm/100 Ml) 2 gm in 100 mls @ 200 mls/hr IV Q24HR@0600 [facility]; Protocol Last Admin: 03/20/20 07:45 Dose: 200 mls/hr Documented by: Azithromycin 500 mg/ Sodium (Chloride) 250 mls @ 250 mls/hr IV Q24HR@0600 [facility]; Protocol Stop: 03/24/20 06:59 Last Admin: 03/20/20 08:18 Dose: 250 mls/hr Documented by: Pantoprazole Sodium (Protonix) 40 mg PO DAILY [facility] Pravastatin Sodium (Pravachol) 40 mg PO QHS [facility] Sodium Chloride (Sodium Chloride Flush Syringe 10 Ml) 10 ml IV BID [facility] Sodium Chloride (Sodium Chloride Flush Syringe 10 Ml) 10 ml IV PRN PRN PRN Reason: LINE FLUSH Tiotropium [place] (Spiriva) 1 puff IH DAILY [facility] Review of Systems Constitutional: no weight loss, no weight gain, no fever, no chills, no sweats Ears, nose, mouth and throat: no ear pain, no nose pain, no sinus pressure, no sinus pain Cardiovascular: orthopnea, shortness of breath, dyspnea on exertion, no chest pain, no palpitations, no rapid/irregular heart beat, no syncope, no lig htheadedness Respiratory: shortness of breath, dyspnea on exertion, no congestion, no wheezing, no pain on inspiration Gastrointestinal: no abdominal pain, no nausea, no vomiting, no diarrhea, no constipation, no change in bowel habits Genitourinary Male: no dysuria, no hematuria, no flank pain, no discharge, no urinary frequency, no urinary hesitancy Musculoskeletal: no neck stiffness, no neck pain, no shooting arm pain, no arm numbness/tingling, no low back pain Integumentary: no rash, no pruritis, no redness, no sores, no wounds Neurological: no head injury, no paralysis, no weakness, no parathesias, no numbness, no tingling, no seizures, no syncope Psychiatric: no anxiety Endocrine: no cold intolerance, no heat intolerance Hematologic/Lymphatic: no easy bruising Physical Examination Vital Signs Temp Pulse Resp BP Pulse Ox 101.4 F H 127 H 31 H 111/47 100 03/20/20 02:27 03/20/20 02:27 03/20/20 02:27 03/20/20 02:27 03/20/20 02:27 General appearance: no acute distress HEENT: Positive: PERRL, Normocephaly, Mucus Membranes Moist Neck: Positive: neck supple, trachea midline Cardiac: Positive: Reg Rate and Rhythm, S1/S2 Lungs: Positive: Decreased Breath Sounds Neuro: Positive: Grossly Intact Abdomen: Negative: Tender Skin: Negative: Rash Musculoskeletal: No Pain Extremities: Absent: edema Results 03/20/20 03:15 03/20/20 03:15 Cardiac Enzymes 03/20/20 03/20/20 Range/Units 03:15 03:15 AST 34 (5-40) units/L Lactate Dehydrogenase 181 H (91-180) units/L Coagulation 03/20/20 Range/Units 03:15 PT 15.6 H (12.2-14.9) Sec. INR 1.24 H (0.87-1.13) APTT 31.6 (24.2-36.6) Sec. Lipids 03/20/20 Range/Units 03:15 Triglycerides 107 (2-149) mg/dL Cholesterol 141 (50-199) mg/dL HDL Cholesterol 37 L (40-59) mg/dL Cholesterol/HDL Ratio 3.81 % CBC 03/20/20 Range/Units 03:15 WBC 12.4 H (4.5-11.0) K/mm3 RBC 3.95 (3.65-5.03) M/mm3 Hgb 11.3 L (11.8-15.2) gm/dl Hct 33.7 L (35.5-45.6) % Plt Count 200 (140-440) K/mm3 Lymph # (Auto) 0.5 L (1.2-5.4) K/mm3 [place] # (Auto) 0.9 H (0.0-0.8) K/mm3 Eos # (Auto) 0.0 (0.0-0.4) K/mm3 Baso # (Auto) 0.0 (0.0-0.1) K/mm3 Comprehensive Metabolic Panel 03/20/20 03/20/20 Range/Units 03:15 03:15 Sodium 138 (137-145) mmol/L Potassium 3.8 (3.6-5.0) mmol/L Chloride 102.4 (98-107) mmol/L Carbon Dioxide 23 (22-30) mmol/L BUN 33 H (9-20) mg/dL Creatinine 1.8 H (0.8-1.3) mg/dL Glucose 142 H 140 H (75-100) mg/dL Calcium 8.9 (8.4-10.2) mg/dL AST 34 (5-40) units/L ALT 32 (7-56) units/L Alkaline Phosphatase 84 (35-129) units/L Total Protein 7.9 (6.3-8.2) g/dL Albumin 3.6 L (3.9-5) g/dL - Imaging and Cardiology Echo: report reviewed (04/2018 showed EF 20-25%, mild MR, mild TR, RA mildly dilated. ) Cardiac cath: report reviewed ( 05/2018 showed normal coronaries, mild pulm HTN, normal CO & CI. ) EKG: report reviewed, image reviewed EKG interpretations - Telemetry EKG Rhythm: Sinus Tachycardia - EKG Sinus rhythms and dysrhythmias: sinus rhythm Assessment and Plan Resume home coreg, hold home Entresto in setting of renal insufficiency. Initiate IV lasix daily and f/u BMP in AM. Minimal troponin elevation appears nonspecific at this time. Cont to trend Pasquale and f/u ECG in AM. Management of suspected PNA per primary team. COVID-19 testing is pending. Plan to f/u tte pending COVID testing result. Will follow. The patient has been seen in conjunction with Dr. Leavitt who agrees with the assessment and plan of care. - Patient Problems (1) Acute on chronic HFrEF (heart failure with reduced ejection fraction) Current Visit: Yes Status: Acute (2) NICM (nonischemic cardiomyopathy) Current Visit: Yes Status: Acute (3) Normal coronary arteries Current Visit: Yes Status: Chronic (4) Person under investigation for COVID-19 Current Visit: Yes Status: Acute (5) Pneumonia Current Visit: Yes Status: Suspected (6) Acute kidney injury Current Visit: Yes Status: Acute (7) Elevated troponin Current Visit: Yes Status: Acute (8) HTN (hypertension) Current Visit: Yes Status: Chronic (9) Lymphedema Current Visit: Yes Status: Chronic (10) Sleep apnea Current Visit: Yes Status: Chronic (11) Obesity Current Visit: Yes Status: Chronic
[2020-03-20 11:24] LABS: Bacteria,Urine 1+ /HPF (Negative); Bilirubin,Urine NEG (Negative); Blood,Urine MOD (Negative); Color,Urine Yellow (Yellow); Mucus,Urine FEW /HPF
[2020-03-20] MEDS: TIOTROPIUM 18 MCG CAP INHALATION IH SCH (13:08)
[2020-03-20] MEDS: FUROSEMIDE 40 MG/4 ML INJ IV SCH (14:07)
[2020-03-20] MEDS: PANTOPRAZOLE 40 MG TAB PO SCH (14:07)
[2020-03-20] MEDS: FERROUS SULFATE 325 MG TAB PO SCH (14:07)
[2020-03-20] MEDS: carvediloL 12.5 MG TAB PO SCH ×2 (14:08→21:21)
[2020-03-20] MEDS: amLODIPine 5 MG TAB PO SCH (14:08)
[2020-03-20] MEDS: allopurinoL 100 MG TAB PO SCH (14:09)
[2020-03-20] MEDS: HEPARIN 5,000 UNIT/1 ML VIAL SUB-Q SCH ×2 (14:10→21:21)
[2020-03-20] MEDS: PRAVASTATIN 40 MG TAB PO SCH (21:21)
[2020-03-20] MEDS ORDERED: carvediloL 25 MG TAB PO SCH (22:00)
[2020-03-21] MEDS: AZITHROMYCIN 500 MG in SODIUM CHLORIDE 0.9% 250ML 250 ML IV SCH (05:40)
[2020-03-21] MEDS: cefTRIAXone/NS 2 GM/100 ML 2 GM/100 ML BAG IV SCH (05:40)
[2020-03-21] MEDS: HEPARIN 5,000 UNIT/1 ML VIAL SUB-Q SCH ×3 (05:41→22:46)
[2020-03-21 06:30] LABS: Basophils % (Auto) 0.1 % (0.0-1.8); Eosinophils % (Auto) 0.1 % (0.0-4.3); Hemoglobin 10.8 gm/dl (11.8-15.2); Lymphocytes # (Auto) 0.7 K/mm3 (1.2-5.4); Lymphocytes % (Auto) 7.4 % (13.4-35.0); Mean Corpuscular HGB Conc 33 % (32-34); Mean Corpuscular Volume 88 fl (84-94); Monocytes # (Auto) 0.9 K/mm3 (0.0-0.8); Monocytes % (Auto) 8.8 % (0.0-7.3); Platelet Count 220 K/mm3 (140-440); Red Blood Count 3.76 M/mm3 (3.65-5.03); Red Cell Distribution Width 17.6 % (13.2-15.2)
[2020-03-21 06:52] LABS: BUN/Creatinine Ratio 23; Blood Urea Nitrogen 30 mg/dL (9-20); Hemolysis Index 0
[2020-03-21] MEDS: TIOTROPIUM 18 MCG CAP INHALATION IH SCH ×2 (08:49→13:33)
--- NOTE | 2020-03-21 09:17 | Consultation ---
History of Present Illness - Reason for Consult Consult date: 03/21/20 r/o COVID Requesting physician: MARLENA QUINTERO - History of Present Illness 55 years old male with history of cardiomyopathy, hypertension, hyperlipidemia, morbid obesity, obstructive sleep apnea on CPAP, gout, lymphedema, admitted on 03/17/2020 secondary to acute onset of shortness of breath, dry cough and chest pressure associated with a fever, patient woke up from sleep with symptoms. Called EMS, upon arrival O2 sats down to 85%. Denies any loss of smell or taste, nausea, vomiting, diarrhea. Denies any exposure to COVID-19 infected people. On arrival, temperature 101.4, HR 127, RR 21, O2 sat 100%, BP 111/47. Initial WBC 12.4. Creatinine is 1.8. Urinalysis 35 WBCs with small leukocyte esterase. D-dimer 5004. Ferritin 451. SARS-CoV-2 PCR negative. CTA without consolidation or pulmonary embolism. Chest x-ray shows left retrocardiac infiltrate. Review of Systems: reviewed ED and H&P notes. Limited due to PPE conservation strategy Past History Past Medical History: COPD, hypertension, other (Lymphedema, morbid obesity, obstructive sleep apnea on home CPAP) Past Surgical History: No surgical history Social history: single, lives with family, full code. denies: smoking, alcohol abuse, prescription drug abuse, IV drug use Family history: diabetes, hypertension Medications and Allergies Allergies Allergy/AdvReac Type Severity Reaction Status Date / Time No Known Allergies Allergy Verified 02/09/15 18:18 Home Medications Medication Instructions Recorded Confirmed Last Taken Type Bumetanide [Bumetanide 2 mg tab] 2 mg PO BID 03/20/20 03/20/20 Unknown History Ferrous Sulfate [Iron 325 MG] 325 mg PO QDAY 03/20/20 03/20/20 Unknown History Furosemide [Lasix] 20 mg PO QDAY 03/20/20 03/20/20 Unknown History ISOSORBIDE MONOnitrate [Imdur ER] 45 mg PO DAILY 03/20/20 03/20/20 Unknown History Loratadine [Claritin RAPDIS] 10 mg PO QDAY 03/20/20 03/20/20 Unknown History Potassium Chloride [Klor-Con M15] 20 meq PO BID 03/20/20 03/20/20 Unknown History Sacubitril/Valsartan [Entresto 97 1 each PO BID 03/20/20 03/20/20 Unknown History mg-103 mg Tablet] allopurinoL [Zyloprim] 100 mg PO QDAY 03/20/20 03/20/20 Unknown History carvediloL [Coreg] 25 mg PO BID 03/20/20 03/20/20 Unknown History Active Meds: Active Medications Acetaminophen (Tylenol) 650 mg PO Q6H PRN PRN Reason: Pain MILD(1-3)/Fever >100.5/[place] Albuterol (Proventil) 2.5 mg IH Q4HRT PRN PRN Reason: Shortness Of Breath Allopurinol (Zyloprim) 100 mg PO QDAY [facility] Last Admin: 03/20/20 14:09 Dose: 100 mg Documented by: Amlodipine Besylate (Amlodipine) 5 mg PO DAILY [facility] Last Admin: 03/20/20 14:08 Dose: 5 mg Documented by: Aspirin (Baby Aspirin) 81 mg PO QDAY [facility] Carvedilol (Coreg) 12.5 mg PO BID [facility] Last Admin: 03/20/20 21:21 Dose: 12.5 mg Documented by: Dexamethasone (Decadron) 6 mg PO DAILY [facility] Stop: 03/29/20 10:01 Ferrous Sulfate (Feosol) 325 mg PO DAILY [facility] Last Admin: 03/20/20 14:07 Dose: 325 mg Documented by: Furosemide (Lasix) 40 mg IV QDAY [facility] Last Admin: 03/20/20 14:07 Dose: 40 mg Documented by: Heparin Sodium (Porcine) (Heparin) 5,000 unit SUB-Q Q8HR [facility] Last Admin: 03/21/20 05:41 Dose: 5,000 unit Documented by: Ceftriaxone Sodium (Rocephin/Ns 2 Gm/100 Ml) 2 gm in 100 mls @ 200 mls/hr IV Q24HR@0600 [facility]; Protocol Last Admin: 03/21/20 05:40 Dose: 200 mls/hr Documented by: Azithromycin 500 mg/ Sodium (Chloride) 250 mls @ 250 mls/hr IV Q24HR@0600 [facility]; Protocol Stop: 03/24/20 06:59 Last Admin: 03/21/20 05:40 Dose: 250 mls/hr Documented by: Pantoprazole Sodium (Protonix) 40 mg PO DAILY [facility] Last Admin: 03/20/20 14:07 Dose: 40 mg Documented by: Pravastatin Sodium (Pravachol) 40 mg PO QHS [facility] Last Admin: 03/20/20 21:21 Dose: 40 mg Documented by: Sodium Chloride (Sodium Chloride Flush Syringe 10 Ml) 10 ml IV BID [facility] Last Admin: 03/20/20 21:22 Dose: 10 ml Documented by: Sodium Chloride (Sodium Chloride Flush Syringe 10 Ml) 10 ml IV PRN PRN PRN Reason: LINE FLUSH Tiotropium [place] (Spiriva) 1 puff IH DAILY [facility] Last Admin: 03/21/20 08:49 Dose: 1 puff Documented by: Physical Examination - Physical Exam Narrative exam: Physical Exam: reviewed ED and hospitalist notes, limited due to conservation of PPE and decrease risk of transmission. General appearance: limited due to conservation of PPE Eyes: limited due to conservation of PPE HENT: Atraumatic; limited due to conservation of PPE Lungs: limited due to conservation of PPE CV: limited due to conservation of PPE Abdomen: limited due to conservation of PPE Extremities: limited due to conservation of PPE Skin: limited due to conservation of PPE Psych: limited due to conservation of PPE Neuro: limited due to conservation of PPE - Constitutional Vitals: Vital Signs Temp Pulse Resp BP Pulse Ox 97.7 F 62 24 95/40 99 03/21/20 05:56 03/21/20 05:56 03/21/20 05:56 03/21/20 05:56 03/21/20 05:56 Temperature -Last 24 Hours Temperature 97.7 F Temperature 98.1 F Temperature 97.8 F Temperature 98.5 F Results - Labs CBC & Chem 7: 03/21/20 06:08 03/21/20 06:08 Labs: Abnormal lab results 03/20/20 03/20/20 03/21/20 Range/Units 14:30 Unknown 06:08 Hgb 10.8 L (11.8-15.2) gm/dl Hct 33.0 L (35.5-45.6) % RDW 17.6 H (13.2-15.2) % Lymph % (Auto) 7.4 L (13.4-35.0) % [place] % (Auto) 8.8 H (0.0-7.3) % Lymph # (Auto) 0.7 L (1.2-5.4) K/mm3 [place] # (Auto) 0.9 H (0.0-0.8) K/mm3 Seg Neutrophils % 83.6 H (40.0-70.0) % Seg Neutrophils # 8.4 H (1.8-7.7) K/mm3 BUN (9-20) mg/dL Glucose (75-100) mg/dL Magnesium 2.60 H (1.7-2.3) mg/dL Urine WBC (Auto) 33.0 H (0.0-6.0) /HPF 03/21/20 Range/Units 06:08 Hgb (11.8-15.2) gm/dl Hct (35.5-45.6) % RDW (13.2-15.2) % Lymph % (Auto) (13.4-35.0) % [place] % (Auto) (0.0-7.3) % Lymph # (Auto) (1.2-5.4) K/mm3 [place] # (Auto) (0.0-0.8) K/mm3 Seg Neutrophils % (40.0-70.0) % Seg Neutrophils # (1.8-7.7) K/mm3 BUN 30 H (9-20) mg/dL Glucose 117 H (75-100) mg/dL Magnesium (1.7-2.3) mg/dL Urine WBC (Auto) (0.0-6.0) /HPF Assessment and Plan Cultures: Blood culture no growth today SARS CoV2 PCR negative Assessment: 55 years old male with history of cardiomyopathy, hypertension, hyp erlipidemia, morbid obesity, obstructive sleep apnea on CPAP, gout, lymphedema, admitted on 03/17/2020 secondary to acute onset of shortness of breath, dry cough and chest pressure associated with a fever, patient woke up from sleep with symptoms: #Severe sepsis: Present with fever tachycardia, elevated leukocytosis and DANAY. Unclear source ? UTI. ? pneumonia Currently COVID-19 infection. #Pneumonia: Community-acquired pneumonia versus COVID-19 infection. Chest x-ray with left retrocardiac infiltrate. CTA did not show consolidation or pulmonary embolism. ? early COVID-19 pneumonia. SARS-CoV-2 PCR negative however symptoms started 24 hours before admission. Procalcitonin elevated at 4. Unclear if he is agreeable versus false elevation due to DANAY. Ferritin mildly elevated, D- dimer elevated. #Acute hypoxemic respiratory failure: O2 sats dropped to 85% at home. Currently on 5 L nasal cannula. #DANAY: from sepsis #Morbid obesity #UTI: Urine culture pending Recommendations: -Repeat SARS-CoV-2 PCR in 48 hours -likely initial SARS-CoV-2 PCR negative due to early infection -Start Dexamethasone 6 mg IV/PO daily for 10 days -No indication for remdesivir at this point as SARS-CoV-2 PCR was negative -Monitor inflammatory markers - ferritin, Ddimer, CRP, LDH -Continue ceftriaxone and azithromycin, procalcitonin >0.25 ng/mL -Continue anticoagulation per System Protocol -Follow-up urine culture All laboratory, cultures and imaging were reviewed. Discussed with attending. Will follow Zaira Romero MD Infectious Diseases [employer] [facility] M [phone] O [phone]
--- NOTE | 2020-03-21 10:53 | Progress Note ---
Assessment and Plan Renal indices improved. Resume home Entresto and increase lasix to BID dosing. Cont coreg. F/u BMP in AM. COVID-19 testing is negative. Obtain echo. Minimal troponin elevation appears nonspecific at this time. Management of PNA and UTI per infectious disease team. The patient has been seen in conjunction with Dr. Leavitt who agrees with the assessment and plan of care. - Patient Problems (1) Acute on chronic HFrEF (heart failure with reduced ejection fraction) Current Visit: Yes Status: Acute (2) NICM (nonischemic cardiomyopathy) Current Visit: Yes Status: Acute (3) Normal coronary arteries Current Visit: Yes Status: Chronic (4) Pneumonia Current Visit: Yes Status: Acute Qualifiers: Laterality: left (5) Acute kidney injury Current Visit: Yes Status: Acute (6) Elevated troponin Current Visit: Yes Status: Acute (7) HTN (hypertension) Current Visit: Yes Status: Chronic (8) Lymphedema Current Visit: Yes Status: Chronic (9) Sleep apnea Current Visit: Yes Status: Chronic (10) Obesity Current Visit: Yes Status: Chronic (11) UTI (urinary tract infection) Current Visit: Yes Status: Acute Subjective Date of service: 03/21/20 Principal diagnosis: HF Interval history: pt sitting up at bedside, feeling better today. On O2 via NC. tele reviewed - in SR HR 70s. Objective Last Vital Signs Temp 97.7 F 03/21/20 05:56 Pulse 62 03/21/20 05:56 Resp 24 03/21/20 05:56 BP 95/40 03/21/20 05:56 Pulse Ox 99 03/21/20 05:56 - Physical Examination General: No Apparent Distress HEENT: Positive: PERRL, Normocephaly, Mucus Membranes Moist Neck: Positive: neck supple, trachea midline Cardiac: Positive: Reg Rate and Rhythm, S1/S2 Lungs: Positive: Decreased Breath Sounds Neuro: Positive: Grossly Intact Abdomen: Negative: Tender Skin: Negative: Rash Musculoskeletal: No Pain Extremities: Absent: edema - Labs and Meds CBC 03/21/20 Range/Units 06:08 WBC 10.0 (4.5-11.0) K/mm3 RBC 3.76 (3.65-5.03) M/mm3 Hgb 10.8 L (11.8-15.2) gm/dl Hct 33.0 L (35.5-45.6) % Plt Count 220 (140-440) K/mm3 Lymph # (Auto) 0.7 L (1.2-5.4) K/mm3 [place] # (Auto) 0.9 H (0.0-0.8) K/mm3 Eos # (Auto) 0.0 (0.0-0.4) K/mm3 Baso # (Auto) 0.0 (0.0-0.1) K/mm3 Comprehensive Metabolic Panel 03/21/20 Range/Units 06:08 Sodium 140 (137-145) mmol/L Potassium 4.1 (3.6-5.0) mmol/L Chloride 102.1 (98-107) mmol/L Carbon Dioxide 27 (22-30) mmol/L BUN 30 H (9-20) mg/dL Creatinine 1.3 (0.8-1.3) mg/dL Glucose 117 H (75-100) mg/dL Calcium 9.0 (8.4-10.2) mg/dL - Imaging and Cardiology EKG: report reviewed, image reviewed Echo: report reviewed (04/2018 showed EF 20-25%, mild MR, mild TR, RA mildly dilated. ) Cardiac cath: report reviewed ( 05/2018 showed normal coronaries, mild pulm HTN, normal CO & CI. ) - Telemetry EKG Rhythm: Sinus Rhythm - EKG Sinus rhythms and dysrhythmias: sinus rhythm
[2020-03-21] MEDS: amLODIPine 5 MG TAB PO SCH (12:29)
[2020-03-21] MEDS: carvediloL 12.5 MG TAB PO SCH ×2 (12:29→22:46)
[2020-03-21] MEDS: PANTOPRAZOLE 40 MG TAB PO SCH (12:30)
[2020-03-21] MEDS: allopurinoL 100 MG TAB PO SCH (12:30)
[2020-03-21] MEDS: ASPIRIN 81 MG TAB CHEW PO SCH (12:30)
[2020-03-21] MEDS: FERROUS SULFATE 325 MG TAB PO SCH (12:30)
[2020-03-21] MEDS: DEXAMETHASONE 4 MG TAB PO SCH (12:30)
--- NOTE | 2020-03-21 14:41 | Progress Note ---
Assessment and Plan - Patient Problems (1) Sepsis Current Visit: Yes Status: Acute Plan to address problem: Presented with tachycardia, tachypnea, acute on chronic respiratory failure, febrile, leukocytosis, acute kidney injury and PNA on cxr Infectious disease consulted Initiated on antibiotic therapy Trend CBC 03/20 BC x2 culture in progress (2) Person under investigation for COVID-19 Current Visit: Yes Status: Acute Plan to address problem: 03/20 COVID-19 PCR pending 03/20 CXR shows suggestion of a mild patchy left retrocardiac opacity which may reflect atelectasis versus pneumonia with no large pleural effusion or pneumothorax. Infectious disease consulted; Repeat SARS-CoV-2 PCR in 48 hours -likely initial SARS-CoV-2 PCR negative due to early infection, Continue ceftriaxone and azithromycin, procalcitonin >0.25 ng/mL Antibiotic therapy Trend inflammatory markers OOB 3 times daily Prone to sleep Supplemental oxygenation as needed Pulmonary hygiene S/p dexamethasone in the ED Dexamethasone 6 mg p.o. daily for 10 days (03/20 through 03/30) Anticoagulation per protocol (3) Acute kidney injury Current Visit: Yes Status: Acute Plan to address problem: Presented with creatinine/BUN 1.8/33, 03/21 Cr/BUN 1.3/30 Unknown baseline Patient is on ACEi and diuretic therapy for CHF at home Strict intake and output Trend BMP Daily weights Consult nephrology if not decreasing Hold nephrotoxic medications at this time Renally dose medications (4) Elevated troponin Current Visit: Yes Status: Resolved Plan to address problem: Presented with transient midsternal chest pressure which was relieved with nitroglycerin 03/20 troponin 0 0.055, 0.079, 0.016, 03/21 0.01 Cardiology consulted Trend troponin ECG as needed (5) Pneumonia Current Visit: Yes Status: Acute Qualifiers: Laterality: left Plan to address problem: 03/20 CXR shows suggestion of a mild patchy left retrocardiac opacity which may reflect atelectasis versus pneumonia with no large pleural effusion or pneumothorax Antibiotic therapy 03/20 COVID PCR negative Supplemental oxygen as needed Pulmonary hygiene (6) Acute respiratory failure Current Visit: Yes Status: Acute Qualifiers: Respiratory failure complication: hypoxia Qualified Code(s): J96.01 - Acute respiratory failure with hypoxia Plan to address problem: Patient was hypoxic and tachypneic upon arrival of EMS Patient was placed on BiPAP by EMS and since has been weaned off to nasal cannula in the emergency department Supplemental oxygen as needed Pulmonary hygiene Patient does not use any oxygen at home however has NATHAN and uses home CPAP at night 03/21 patient has been weaned to room air (7) Acute on chronic HFrEF (heart failure with reduced ejection fraction) Current Visit: Yes Status: Acute Plan to address problem: Cardiology consult 03/20 proBNP 508 IV Lasix, resume home beta-jose Per cardiology: 04/2018 TTE showed EF of 20 to 25%, mild MR, mild TR, RA mildly dilated 05/2018 left and right heart cath showed normal coronaries, mild pulmonary hypertension, normal cardiac output and cardiac index 03/21 TTE pending read Per cardio: Resume home Entresto and increase lasix to BID dosing. Cont coreg. F/u BMP in AM. 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 Trend COVID-19 found to markers including D-dimer Prophylaxis per COVID-19 protocol (9) Morbid obesity with BMI of 50.0-59.9, adult Current Visit: No Status: Chronic Plan to address problem: Weight loss counseling Dietary modifications and increase physical activity upon discharge Consider bariatric surgery if warranted (10) NATHAN (obstructive sleep apnea) Current Visit: Yes Status: Chronic Plan to address problem: Continue home CPAP machine at night (11) GERD (gastroesophageal reflux disease) Current Visit: No Status: Chronic Plan to address problem: Continue home Protonix (12) HTN (hypertension) Current Visit: Yes Status: Chronic Plan to address problem: Hold Entresto in setting of acute kidney injury Resume home metoprolol and amlodipine IV Lasix therapy for now Blood pressure monitoring per protocol (13) Lymphedema Current Visit: Yes Status: Chronic Plan to address problem: Supportive care Elevate bilateral lower extremities while in bed (14) Gout Current Visit: Yes Status: Chronic Plan to address problem: Resume home allopurinol Supportive care (15) HLD (hyperlipidemia) Current Visit: Yes Status: Chronic Plan to address problem: Resume home statin therapy (16) DVT prophylaxis Current Visit: Yes Status: Acute Plan to address problem: Heparin subcu in setting of DANAY SCDs to bilateral extremities while in bed History Interval history: 55 year old male with nonischimic cardiomyopathy, HFrEF, HTN, HLD, morbid obesity, NATHAN on CPAP, gout and lymphedema who presented to the ED on 03/20 with a sudden onset of shortness of breath, dry cough, transient midsternal pressure (initially was a 6/10 and has been relieved with nitroglycerin given via EMS) and fever at 0100 which awakened him from sleep. Upon arrival of EMS patient was found to be in respiratory distress with saturation of 85% on room air and tachypneic into the 30s and he was placed on CPAP with improvement in his respiratory status. Work-up in the emergency department revealed acute kidney injury (CR 1.8/33), elevated D-dimer at 1504, leukocytosis at 12.4 and his chest x-ray showed mild patchy left retrocardiac opacity which may reflect atelectasis versus pneumonia, elevated troponin (0.055, 0.079), and elevated COVID-19 inflammatory markers. Infectious disease and cardiology have been consulted. Patient has been admitted to the hospitalist service for sepsis, DANAY, rule out COVID-19, CAP, acute respiratory failure, and elevated troponins. Today patient had a echocardiogram, his DANAY resolved, Entresto restarted, ID would like to retest the patient for COVID-19 in 48 hours. At the time my examination patient has been weaned to room air. 03/20: COVID-19 PCR negative Hospitalist Physical - Constitutional Vitals: Temp Pulse Resp BP Pulse Ox 98.0 F 76 18 118/49 92 03/21/20 12:09 03/21/20 12:09 03/21/20 12:09 03/21/20 12:29 03/21/20 12:09 General appearance: Present: no acute distress, obese - EENT Eyes: Present: PERRL, EOM intact ENT: hearing intact, clear oral mucosa (This) - Neck Neck: Present: supple, normal ROM - Respiratory Respiratory effort: normal Respiratory: bilateral: CTA, diminished - Cardiovascular Rhythm: regular Heart Sounds: Present: S1 & S2, systolic murmur. Absent: diastolic murmur - Extremities Extremities: no ischemia, pulses intact, pulses symmetrical, normal temperature, normal color, Full ROM Extremity abnormal: edema - Peripheral Assessment Bilateral Lower Extremity Capillary Refill: < 3 seconds Skin Temperature: Warm Peripheral Pulses: within normal limits - Abdominal General gastrointestinal: soft, non-tender, non-distended, normal bowel sounds - Integumentary Integumentary: Present: clear, warm, dry - Psychiatric Psychiatric: appropriate mood/affect, cooperative - Neurologic Neurologic: CNII-XII intact, no focal deficits, moves all extremities HEART Score - HEART Score EKG: Normal Age: 45-65 Risk factors: > 3 risk factors or hx of atherosclerotic disease Troponin: Troponin T 0.010 ng/mL (0.00-0.029) 03/21/20 06:08 Troponin: 1-3x normal limit Results - Labs CBC & Chem 7: 03/21/20 06:08 03/21/20 06:08 Labs: Laboratory Last Values WBC 10.0 K/mm3 (4.5-11.0) 03/21/20 06:08 RBC 3.76 M/mm3 (3.65-5.03) 03/21/20 06:08 Hgb 10.8 gm/dl (11.8-15.2) L 03/21/20 06:08 Hct 33.0 % (35.5-45.6) L 03/21/20 06:08 MCV 88 fl (84-94) 03/21/20 06:08 MCH 29 pg (28-32) 03/21/20 06:08 MCHC 33 % (32-34) 03/21/20 06:08 RDW 17.6 % (13.2-15.2) H 03/21/20 06:08 Plt Count 220 K/mm3 (140-440) 03/21/20 06:08 Lymph % (Auto) 7.4 % (13.4-35.0) L 03/21/20 06:08 [place] % (Auto) 8.8 % (0.0-7.3) H 03/21/20 06:08 Eos % (Auto) 0.1 % (0.0-4.3) 03/21/20 06:08 Baso % (Auto) 0.1 % (0.0-1.8) 03/21/20 06:08 Lymph # (Auto) 0.7 K/mm3 (1.2-5.4) L 03/21/20 06:08 [place] # (Auto) 0.9 K/mm3 (0.0-0.8) H 03/21/20 06:08 Eos # (Auto) 0.0 K/mm3 (0.0-0.4) 03/21/20 06:08 Baso # (Auto) 0.0 K/mm3 (0.0-0.1) 03/21/20 06:08 Seg Neutrophils % 83.6 % (40.0-70.0) H 03/21/20 06:08 Seg Neutrophils # 8.4 K/mm3 (1.8-7.7) H 03/21/20 06:08 PT 15.6 Sec. (12.2-14.9) H 03/20/20 03:15 INR 1.24 (0.87-1.13) H 03/20/20 03:15 APTT 31.6 Sec. (24.2-36.6) 03/20/20 03:15 D-Dimer 1504.29 ng/mlDDU (0-234) H 03/20/20 03:15 ABG pH 7.389 pH Units (7.350-7.450) 03/20/20 02:40 ABG pCO2 39.0 mm Hg 03/20/20 02:40 ABG pO2 166.3 mm Hg (80.0-90.0) H 03/20/20 02:40 ABG HCO3 23.0 mmol/L (20.0-26.0) 03/20/20 02:40 ABG O2 Saturation 99.0 % (95.0-99.0) 03/20/20 02:40 ABG O2 Content 16.3 (0.0-44) 03/20/20 02:40 ABG Base Excess -1.8 mmol/L (-2.0-3.0) 03/20/20 02:40 ABG Hemoglobin 11.7 gm/dl (14.0-18.0) L 03/20/20 02:40 ABG Carboxyhemoglobin 1.4 % (0.0-5.0) 03/20/20 02:40 ABG Methemoglobin 0.7 % (0.0-1.5) 03/20/20 02:40 Oxyhemoglobin 97.0 % (95.0-99.0) 03/20/20 02:40 FiO2 50 % 03/20/20 02:40 Sodium 140 mmol/L (137-145) 03/21/20 06:08 Potassium 4.1 mmol/L (3.6-5.0) 03/21/20 06:08 Chloride 102.1 mmol/L (98-107) 03/21/20 06:08 Carbon Dioxide 27 mmol/L (22-30) 03/21/20 06:08 Anion Gap 15 mmol/L 03/21/20 06:08 BUN 30 mg/dL (9-20) H 03/21/20 06:08 Creatinine 1.3 mg/dL (0.8-1.3) 03/21/20 06:08 Estimated GFR > 60 ml/min 03/21/20 06:08 BUN/Creatinine Ratio 23 % 03/21/20 06:08 Glucose 117 mg/dL (75-100) H 03/21/20 06:08 Lactic Acid 1.10 mmol/L (0.7-2.0) 03/20/20 14:30 Calcium 9.0 mg/dL (8.4-10.2) 03/21/20 06:08 Magnesium 2.60 mg/dL (1.7-2.3) H 03/20/20 14:30 Ferritin 451.3 ng/mL (30.0-300.0) H 03/20/20 03:15 Total Bilirubin 0.60 mg/dL (0.1-1.2) 03/20/20 03:15 AST 34 units/L (5-40) 03/20/20 03:15 ALT 32 units/L (7-56) 03/20/20 03:15 Alkaline Phosphatase 84 units/L (35-129) 03/20/20 03:15 Lactate Dehydrogenase 181 units/L (91-180) H 03/20/20 03:15 Troponin T 0.010 ng/mL (0.00-0.029) 03/21/20 06:08 C-Reactive Protein 15.90 mg/dL (0.00-1.30) H 03/20/20 03:15 NT-Pro-B Natriuret Pep 508.7 pg/mL (0-900) 03/20/20 03:15 Total Protein 7.9 g/dL (6.3-8.2) 03/20/20 03:15 Albumin 3.6 g/dL (3.9-5) L 03/20/20 03:15 Albumin/Globulin Ratio 0.8 % 03/20/20 03:15 Triglycerides 107 mg/dL (2-149) 03/20/20 03:15 Cholesterol 141 mg/dL (50-199) 03/20/20 03:15 LDL Cholesterol Direct 88 mg/dL (50-130) 03/20/20 03:15 HDL Cholesterol 37 mg/dL (40-59) L 03/20/20 03:15 Cholesterol/HDL Ratio 3.81 % 03/20/20 03:15 Procalcitonin 4.62 ng/mL (<0.15) 03/20/20 03:15 Urine Color Yellow (Yellow) 03/20/20 Unknown Urine Turbidity Clear (Clear) 03/20/20 Unknown Urine pH 5.0 (5.0-7.0) 03/20/20 Unknown Ur Specific [place] 1.027 (1.003-1.030) 03/20/20 Unknown Urine Protein 100 mg/dl mg/dL (Negative) 03/20/20 Unknown Urine Glucose (UA) Neg mg/dL (Negative) 03/20/20 Unknown Urine Ketones Neg mg/dL (Negative) 03/20/20 Unknown Urine Blood Mod (Negative) 03/20/20 Unknown Urine Nitrite Neg (Negative) 03/20/20 Unknown Urine Bilirubin Neg (Negative) 03/20/20 Unknown Urine Urobilinogen 2.0 mg/dL (<2.0) 03/20/20 Unknown Ur Leukocyte Esterase Sm (Negative) 03/20/20 Unknown Urine WBC (Auto) 33.0 /HPF (0.0-6.0) H 03/20/20 Unknown Urine RBC (Auto) 5.0 /HPF (0.0-6.0) 03/20/20 Unknown Urine Bacteria (Auto) 1+ /HPF (Negative) 03/20/20 Unknown Urine Mucus Few /HPF 03/20/20 Unknown Coronavirus (PCR) Negative (Negative) 03/20/20 Unknown Microbiology: Microbiology 03/20/20 03:15 Peripheral/Venous Blood Culture - Preliminary NO GROWTH AFTER 24 HOURS 03/20/20 02:49 Peripheral/Venous Blood Culture - Preliminary NO GROWTH AFTER 24 HOURS Shukla/IV: Voiding Method Urinal IV Catheter Type [Left INT / Saline Lock Antecubital] Active Medications - Current Medications Current Medications: Generic Name Dose Route Start Last Admin Trade Name Freq PRN Reason Stop Dose Admin Acetaminophen 650 mg 03/20/20 09:18 Tylenol PO Q6H PRN Pain MILD(1-3)/Fever >100.5/CORDON Albuterol 2.5 mg 03/20/20 09:21 Proventil IH Q4HRT PRN Shortness Of Breath Allopurinol 100 mg 03/20/20 13:00 03/21/20 12:30 Zyloprim PO 100 mg QDAY VIJAY Administration Amlodipine Besylate 5 mg 03/20/20 10:00 03/21/20 12:29 Amlodipine PO Not Given DAILY [facility] Aspirin 81 mg 03/21/20 10:00 03/21/20 12:30 Baby Aspirin PO 81 mg QDAY [facility] Administration Carvedilol 12.5 mg 03/20/20 11:00 03/21/20 12:29 Coreg PO Not Given BID [facility] Dexamethasone 6 mg 03/21/20 10:00 03/21/20 12:30 Decadron PO 03/29/20 10:01 6 mg DAILY [facility] Administration Ferrous Sulfate 325 mg 03/20/20 10:00 03/21/20 12:30 Feosol PO 325 mg DAILY [facility] Administration Furosemide 40 mg 03/21/20 11:00 Lasix IV 0600,1800 [facility] Heparin Sodium (Porcine) 5,000 unit 03/20/20 14:00 03/21/20 05:41 Heparin SUB-Q 5,000 unit Q8HR [facility] Administration Ceftriaxone Sodium 2 gm in 100 mls @ 200 mls/hr 03/20/20 05:43 03/21/20 05:40 Rocephin/Ns 2 Gm/100 Ml IV 200 mls/hr Q24HR@0600 [facility] Administration Protocol Azithromycin 500 mg/ Sodium 250 mls @ 250 mls/hr 03/20/20 05:43 03/21/20 05:40 Chloride IV 03/24/20 06:59 250 mls/hr Q24HR@0600 [facility] Administration Protocol Pantoprazole Sodium 40 mg 03/20/20 10:00 03/21/20 12:30 Protonix PO 40 mg DAILY VIJAY Administration Pravastatin Sodium 40 mg 03/20/20 22:00 03/20/20 21:21 Pravachol PO 40 mg QHS VIJAY Administration Sodium Chloride 10 ml 03/20/20 10:00 03/21/20 12:38 Sodium Chloride Flush Syringe 10 Ml IV 10 ml BID VIJAY Administration Sodium Chloride 10 ml 03/20/20 09:18 Sodium Chloride Flush Syringe 10 Ml IV PRN PRN LINE FLUSH Tiotropium [place] 1 puff 03/20/20 10:00 03/21/20 13:33 Spiriva IH Not Given DAILY VIJAY Nutrition/Malnutrition Assess - Dietary Evaluation Nutrition/Malnutrition Findings: Nutrition Notes Start: 03/21/20 12:35 Freq: Status: Active Protocol: Document 03/21/20 12:36 AT (Rec: 03/21/20 12:38 AT [id number]) Co-Sign 03/21/20 12:36 LM Nutrition Notes Need for Assessment generated from: automation controls specialist Initial or Follow up Brief Note Current Diagnosis Acute Kidney Injury,Sepsis, Hypertension,Respiratory Failure,Hyperlipidemia Other Pertinent Diagnosis Suspected COVID-19, Pneumonia Current Diet Cardiac Subjective/Other Information Screen for skin risk, but found no wounds. Per chart, Doe score of 21. Per RN, pt is eating "very well" with intakes above 75%. Nutrition Intervention Revisit per MD consult or patient Sign Off request:
[2020-03-21] MEDS: FUROSEMIDE 40 MG/4 ML INJ IV SCH ×3 (17:43→18:30)
[2020-03-21] MEDS: SACUBITRIL/VALSARTAN 49-51 MG TAB PO SCH ×2 (18:18→22:46)
[2020-03-21] MEDS ORDERED: SACUBITRIL PO SCH (22:00)
[2020-03-21] MEDS ORDERED: VALSARTAN PO SCH (22:00)
[2020-03-21] MEDS: PRAVASTATIN 40 MG TAB PO SCH (22:46)
[2020-03-22 07:01] LABS: BUN/Creatinine Ratio 25; Blood Urea Nitrogen 25 mg/dL (9-20); Calcium 8.9 mg/dL (8.4-10.2); Hemolysis Index 0
[2020-03-22] MEDS: HEPARIN 5,000 UNIT/1 ML VIAL SUB-Q SCH (07:04)
[2020-03-22] MEDS: AZITHROMYCIN 500 MG in SODIUM CHLORIDE 0.9% 250ML 250 ML IV SCH (07:05)
[2020-03-22] MEDS: FUROSEMIDE 40 MG/4 ML INJ IV SCH (07:05)
[2020-03-22] MEDS: cefTRIAXone/NS 2 GM/100 ML 2 GM/100 ML BAG IV SCH (07:06)
[2020-03-22] MEDS: TIOTROPIUM 18 MCG CAP INHALATION IH SCH ×2 (07:42→10:20)
--- NOTE | 2020-03-22 09:27 | Progress Note ---
Assessment and Plan Cultures: Blood culture no growth today SARS CoV2 PCR negative Assessment: 55 years old male with history of cardiomyopathy, hypertension, hyperlipidemia, morbid obesity, obstructive sleep apnea on CPAP, gout, lymphedema, admitted on 03/17/2020 secondary to acute onset of shortness of breath, dry cough and chest pressure associated with a fever, patient woke up from sleep with symptoms: #Severe sepsis: Present with fever tachycardia, elevated leukocytosis and DANAY. Unclear source ? UTI. ? pneumonia Currently COVID-19 infection. #Pneumonia: Community-acquired pneumonia versus COVID-19 infection. Chest x-ray with left retrocardiac infiltrate. CTA did not show consolidation or pulmonary embolism. ? early COVID-19 pneumonia. SARS-CoV-2 PCR negative however symptoms started 24 hours before admission. Procalcitonin elevated at 4. Unclear if he is agreeable versus false elevation due to DANAY. Ferritin mildly elevated, D- dimer elevated. #Acute hypoxemic respiratory failure: O2 sats dropped to 85% at home. Currently on 2 L nasal cannula. #DANAY: from sepsis #Morbid obesity #UTI: Urine culture pending Recommendations: -Repeat SARS-CoV-2 PCR today -likely initial SARS-CoV-2 PCR negative due to early infection -Continue Dexamethasone 6 mg IV/PO daily for 10 days -No indication for remdesivir at this point as SARS-CoV-2 PCR was negative -Monitor inflammatory markers - ferritin, Ddimer, CRP, LDH -Continue ceftriaxone and azithromycin, procalcitonin >0.25 ng/mL -Continue anticoagulation per System Protocol -Follow-up urine culture -Obtain 6-min walking test if normal ok to d/c, if hypoxia wait for repeat SARS COV2 PCR, if discharge continue abx-levaquin 750 mg po qday total 5 days All laboratory, cultures and imaging were reviewed. Will follow Zaira Romero MD Infectious Diseases Manufacturing Quality Manager [facility] M [phone] O [phone] Subjective Date of service: 03/22/20 Principal diagnosis: HF Interval history: No fever, remains on 2 L Objective - Exam Narrative Exam: Physical Exam: reviewed ED and hospitalist notes, limited due to conservation of PPE and decrease risk of transmission. General appearance: limited due to conservation of PPE Eyes: limited due to conservation of PPE HENT: Atraumatic; limited due to conservation of PPE Lungs: limited due to conservation of PPE CV: limited due to conservation of PPE Abdomen: limited due to conservation of PPE Extremities: limited due to conservation of PPE Skin: limited due to conservation of PPE Psych: limited due to conservation of PPE Neuro: limited due to conservation of PPE - Constitutional Vitals: Vital Signs Temp Pulse Resp BP Pulse Ox 98.5 F 86 20 100/57 96 03/21/20 22:32 03/22/20 07:44 03/22/20 07:44 03/21/20 22:32 03/22/20 07:45 Temperature -Last 24 Hours Temperature 98.5 F Temperature 97.8 F Temperature 98.0 F - Labs CBC & Chem 7: 03/21/20 06:08 03/22/20 05:16 Labs: Abnormal lab results 03/22/20 03/22/20 03/22/20 Range/Units 04:00 05:16 05:16 D-Dimer 496.03 H (0-234) ng/mlDDU BUN 25 H (9-20) mg/dL Glucose 108 H (75-100) mg/dL Ferritin 467.5 H (30.0-300.0) ng/mL C-Reactive Protein 6.60 H (0.00-1.30) mg/dL
--- NOTE | 2020-03-22 11:23 | Progress Note ---
Assessment and Plan tte reviewed - EF 50-55%, impaired relaxation, LA mildly dilated, RV slightly dilated, RVSP 40mmHg. Currently stable cardiac status. Pt may discharge from cardiology standpoint on home cardiac regimen, including PO lasix 40mg daily. Recommend pt follow up with his primary potter or ceramic artist at [facility] within 1-2 weeks. He states he already has a follow-up appt scheduled for next week. The patient has been seen in conjunction with Dr. Leavitt who agrees with the assessment and plan of care. - Patient Problems (1) Acute on chronic HFrEF (heart failure with reduced ejection fraction) Current Visit: Yes Status: Acute (2) NICM (nonischemic cardiomyopathy) Current Visit: Yes Status: Acute (3) Normal coronary arteries Current Visit: Yes Status: Chronic (4) Pneumonia Current Visit: Yes Status: Acute Qualifiers: Laterality: left (5) Acute kidney injury Current Visit: Yes Status: Acute (6) Elevated troponin Current Visit: Yes Status: Resolved (7) HTN (hypertension) Current Visit: Yes Status: Chronic (8) Lymphedema Current Visit: Yes Status: Chronic (9) Sleep apnea Current Visit: Yes Status: Chronic (10) Obesity Current Visit: Yes Status: Chronic (11) UTI (urinary tract infection) Current Visit: Yes Status: Acute Subjective Date of service: 03/22/20 Principal diagnosis: HF Interval history: pt sitting up at bedside, feeling better today. tele reviewed - in SR HR 70s with isolated PVCs overnight. Objective Last Vital Signs Temp 98.0 F 03/22/20 11:17 Pulse 73 03/22/20 11:17 Resp 18 03/22/20 11:17 BP 122/72 03/22/20 11:17 Pulse Ox 97 03/22/20 11:17 - Physical Examination General: No Apparent Distress HEENT: Positive: PERRL, Normocephaly, Mucus Membranes Moist Neck: Positive: neck supple, trachea midline Cardiac: Positive: Reg Rate and Rhythm, S1/S2 Lungs: Positive: Decreased Breath Sounds Neuro: Positive: Grossly Intact Abdomen: Negative: Tender Skin: Negative: Rash Musculoskeletal: No Pain Extremities: Absent: edema - Labs and Meds Cardiac Enzymes 03/22/20 Range/Units 05:16 Lactate Dehydrogenase 177 (91-180) units/L Comprehensive Metabolic Panel 03/22/20 Range/Units 05:16 Sodium 142 (137-145) mmol/L Potassium 3.9 (3.6-5.0) mmol/L Chloride 105.2 (98-107) mmol/L Carbon Dioxide 30 (22-30) mmol/L BUN 25 H (9-20) mg/dL Creatinine 1.0 (0.8-1.3) mg/dL Glucose 108 H (75-100) mg/dL Calcium 8.9 (8.4-10.2) mg/dL - Imaging and Cardiology EKG: report reviewed, image reviewed Echo: report reviewed (04/2018 showed EF 20-25%, mild MR, mild TR, RA mildly dilated. ) Cardiac cath: report reviewed ( 05/2018 showed normal coronaries, mild pulm HTN, normal CO & CI. ) - Telemetry EKG Rhythm: Sinus Rhythm - EKG Sinus rhythms and dysrhythmias: sinus rhythm
[2020-03-22] MEDS: ASPIRIN 81 MG TAB CHEW PO SCH (11:30)
[2020-03-22] MEDS: PANTOPRAZOLE 40 MG TAB PO SCH (11:30)
[2020-03-22] MEDS: allopurinoL 100 MG TAB PO SCH (11:30)
[2020-03-22] MEDS: FERROUS SULFATE 325 MG TAB PO SCH (11:30)
[2020-03-22] MEDS: amLODIPine 5 MG TAB PO SCH (11:30)
[2020-03-22] MEDS: DEXAMETHASONE 4 MG TAB PO SCH (11:31)
[2020-03-22] MEDS: carvediloL 12.5 MG TAB PO SCH (11:31)
[2020-03-22] MEDS: SACUBITRIL/VALSARTAN 49-51 MG TAB PO SCH (11:31)
--- NOTE | 2020-03-22 11:42 | Discharge Summary ---
<AUSTIN RAYARoula - Last Filed: 03/22/20 12:37> Providers - Providers Date of Admission: 03/20/20 06:25 Attending physician: PATRICIA BOO MD 03/20/20 05:41 Consult to Physician [CONS] Urgent Comment: Consulting Provider: NAVEEN VASQUES Physician Instructions: Reason For Exam: fever, infiltrate, covid ordered 03/20/20 08:02 Consult to Physician [CONS] Routine Comment: Consulting Provider: BALA NEWELL Physician Instructions: Reason For Exam: elevated trop Primary care physician: FISHER HAND LINE Hospitalization Condition: Stable Hospital course: 55 year old male with nonischimic cardiomyopathy, HFrEF, HTN, HLD, morbid obesity, NATHAN on CPAP, gout and lymphedema who presented to the ED on 03/20 with a sudden onset of shortness of breath, dry cough, transient midsternal pressure (initially was a 6/10 and has been relieved with nitroglycerin given via EMS) and fever at 0100 which awakened him from sleep. Upon arrival of EMS patient was found to be in respiratory distress with saturation of 85% on room air and tachypneic into the 30s and he was placed on CPAP with improvement in his respiratory status. Work-up in the emergency department revealed acute kidney injury (CR 1.8/33), elevated D-dimer at 1504, leukocytosis at 12.4 and his chest x-ray showed mild patchy left retrocardiac opacity which may reflect atelectasis versus pneumonia, elevated troponin (0.055, 0.079), and elevated COVID-19 inflammatory markers. Infectious disease and cardiology have been consulted. Patient has been admitted to the hospitalist service for sepsis, DANAY, rule out COVID-19, CAP, acute respiratory failure, and elevated troponins. On 03/20 his COVID-19 PCR resulted as negative. Patient obtained in echocardiogram on 03/21 and his DANAY resolved therefore Entresto was restarted. Patient will need to follow-up with his primary care physician and sports medicine trainer within 1 to 2 weeks of discharge. Patient will be discharged with p.o. Lasix Levaquin 750 mg p.o. daily for 5 days. Assessment and Plan - Patient Problems (1) Sepsis Current Visit: Yes Status: Acute Plan to address problem: Presented with tachycardia, tachypnea, acute on chronic respiratory failure, febrile, leukocytosis, acute kidney injury and PNA on cxr Infectious disease consulted Initiated on antibiotic therapy 03/20 BC x2 culture in progress We will discharge with antibiotic therapy (2) Person under investigation for COVID-19 Current Visit: Yes Status: Ruled out Plan to address problem: 03/20 COVID-19 PCR pending 03/20 CXR shows suggestion of a mild patchy left retrocardiac opacity which may reflect atelectasis versus pneumonia with no large pleural effusion or pneumothorax. Infectious disease consulted; Repeat SARS-CoV-2 PCR in 48 hours -likely initial SARS-CoV-2 PCR negative due to early infection, Continue ceftriaxone and azithromycin, procalcitonin >0.25 ng/mL Dexamethasone 6 mg p.o. daily for 10 days (03/20 through 03/30) (3) Acute kidney injury Current Visit: Yes Status: Resolved Plan to address problem: Presented with creatinine/BUN 1.8/33, 03/21 Cr/BUN 1.3/30 Unknown baseline Patient is on ACEi and diuretic therapy for CHF at home Strict intake and output Follow-up with the primary care physician upon discharge Continue Daily weights for CHF (4) Elevated troponin Current Visit: Yes Status: Resolved Plan to address problem: Presented with transient midsternal chest pressure which was relieved with nitroglycerin 03/20 troponin 0 0.055, 0.079, 0.016, 03/21 0.01 Cardiology consulted (5) Pneumonia Current Visit: Yes Status: Acute Qualifiers: Laterality: left Plan to address problem: 03/20 CXR shows suggestion of a mild patchy left retrocardiac opacity which may reflect atelectasis versus pneumonia with no large pleural effusion or pneumothorax Antibiotic therapy 03/20 COVID PCR negative Will be discharged with antibiotic therapy (6) Acute respiratory failure Current Visit: Yes Status: Resolved Qualifiers: Respiratory failure complication: hypoxia Qualified Code(s): J96.01 - Acute respiratory failure with hypoxia Plan to address problem: Patient was hypoxic and tachypneic upon arrival of EMS Patient was placed on BiPAP by EMS and since has been weaned off to nasal cannula in the emergency department Supplemental oxygen as needed Pulmonary hygiene Patient does not use any oxygen at home however has NATHAN and uses home CPAP at night 03/21 patient has been weaned to room air (7) Acute on chronic HFrEF (heart failure with reduced ejection fraction) Current Visit: Yes Status: Acute Plan to address problem: Cardiology consult 03/20 proBNP 508 IV Lasix, resume home beta-jose Per cardiology: 04/2018 TTE showed EF of 20 to 25%, mild MR, mild TR, RA mildly dilated 05/2018 left and right heart cath showed normal coronaries, mild pulmonary hypertension, normal cardiac output and cardiac index 03/21 TTE shows borderline LVH, estimated EF 50 to 55%, impaired relaxation, mildly dilated left atrium and right ventricle, normal right ventricular global systolic function, RVSP is calculated at 40 mmHg, and inferior vena cava is dilated Per cardio: Resume home Entresto and increase lasix to BID dosing. Cont coreg. F/u BMP in AM. Patient will need to follow-up with his sports medicine trainer at [facility] upon discharge and will be discharged on p.o. Lasix (8) Elevated d-dimer Current Visit: Yes Status: Acute Plan to address problem: Presented with a D-dimer of 1504 03/30 CTA chest shows no large central or segmental pulmonary embolism identified, bilateral renal cysts with no acute findings. (9) Morbid obesity with BMI of 50.0-59.9, adult Current Visit: No Status: Chronic Plan to address problem: Weight loss counseling Dietary modifications and increase physical activity upon discharge Consider bariatric surgery if warranted (10) NATHAN (obstructive sleep apnea) Current Visit: Yes Status: Chronic Plan to address problem: Continue home CPAP machine at night (11) GERD (gastroesophageal reflux disease) Current Visit: No Status: Chronic Plan to address problem: Continue home Protonix (12) HTN (hypertension) Current Visit: Yes Status: Chronic Plan to address problem: Continue home metoprolol, amlodipine and Entresto Blood pressure monitoring per PCP instructions (13) Lymphedema Current Visit: Yes Status: Chronic Plan to address problem: Supportive care Elevate bilateral lower extremities while in bed (14) Gout Current Visit: Yes Status: Chronic Plan to address problem: Continue home allopurinol Supportive care (15) HLD (hyperlipidemia) Current Visit: Yes Status: Chronic Plan to address problem: Continue home statin therapy Disposition: DC-30 STILL A PATIENT Time spent for discharge: 35 Core Measure Documentation - Palliative Care Palliative Care/ Comfort Measures: Not Applicable - Core Measures Any of the following diagnoses?: heart failure - Heart Failure Discharge Requirements TORRIE/ARB for LVSD if EF <40%: Yes Beta jose at discharge: Yes Exam - Constitutional Vitals: Temp Pulse Resp BP Pulse Ox 98.0 F 73 18 122/72 97 03/22/20 11:17 03/22/20 11:17 03/22/20 11:17 03/22/20 11:31 03/22/20 11:17 General appearance: Present: no acute distress, obese - EENT Eyes: Present: PERRL, EOM intact ENT: clear oral mucosa - Neck Neck: Present: normal ROM - Respiratory Respiratory effort: normal Respiratory: bilateral: diminished (2/2 to grith) - Cardiovascular Rhythm: regular Heart Sounds: Present: S1 & S2. Absent: systolic murmur, diastolic murmur - Extremities Extremities: no ischemia, pulses intact, pulses symmetrical, No edema, normal temperature, normal color, Full ROM Peripheral Pulses: within normal limits - Abdominal General gastrointestinal: Present: soft, non-tender, non-distended, normal bowel sounds - Integumentary Integumentary: Present: clear, warm, dry - Musculoskeletal Musculoskeletal: strength equal bilaterally - Psychiatric Psychiatric: cooperative Plan Activity: advance as tolerated Diet: low fat, low cholesterol, low salt, low carbohydrate Special Instructions: record daily weights, record daily BP diary Additional Instructions: Present to nearest emergency department or contact your primary care physician if you experience worsening symptoms. You will be discharged with antibiotic therapy and for increased your Lasix dose. Follow-up with your primary care physician and sports medicine trainer within 1 to 2 weeks of discharge. Follow up with: RUSTY NEGRO MD [Primary Care Provider] - 3-5 Days CHEO BURGOS MD [Staff Physician] - 7 Days DEEPALI REYEZ MD [Staff Physician] - 7 Days Prescriptions: amLODIPine 5 mg PO DAILY #30 tablet Aspirin [Aspirin BABY CHEW TAB] 81 mg PO QDAY #30 tab.chew carvediloL [Coreg] 12.5 mg PO BID #60 tablet Furosemide [Lasix TAB] 40 mg PO QDAY #30 tablet levoFLOXacin [Levaquin] 750 mg PO QDAY #5 tablet <PATRICIA BOO - Last Filed: 03/23/20 13:01> Providers - Providers Date of Admission: 03/20/20 06:25 Attending physician: PATRICIA BOO MD 03/20/20 05:41 Consult to Physician [CONS] Urgent Comment: Consulting Provider: NAVEEN VASQUES Physician Instructions: Reason For Exam: fever, infiltrate, covid ordered 03/20/20 08:02 Consult to Physician [CONS] Routine Comment: Consulting Provider: BALA NEWELL Physician Instructions: Reason For Exam: elevated trop Primary care physician: FISHER HAND LINE Exam - Constitutional Vitals: Temp Pulse Resp BP Pulse Ox 98.0 F 73 18 122/72 97 03/22/20 11:17 03/22/20 11:17 03/22/20 11:17 03/22/20 11:31 03/22/20 11:17
[2020-03-22 11:58] VITALS: BP 122/72
== END 2020-03-22 16:00 | disposition home or self-care (01) | DRG 871 ==
LOC: ED 02:13 → OBSVTOIN 06:25 → 3A 06:25 → IMCU 09:36 → 3A 11:30
PROVIDERS: ADMIT Internal Medicine; ATTEND Internal Medicine
PROC: 4A033R1 Measurement of Arterial Saturation, Peripheral, Percutaneous Approach (ICD-10-PCS; principal; 2020-03-20)
PROC: 5A09457 Assistance with Respiratory Ventilation, 24-96 Consecutive Hours, Continuous Positive Airway Pressure (ICD-10-PCS; 2020-03-20)
DX: A41.9 Sepsis, unspecified organism (principal); J18.9 Pneumonia, unspecified organism; I50.23 Acute on chronic systolic (congestive) heart failure; N17.0 Acute kidney failure with tubular necrosis; J96.21 Acute and chronic respiratory failure with hypoxia; N39.0 Urinary tract infection, site not specified; I42.8 Other cardiomyopathies; Z68.43 Body mass index [BMI] 50.0-59.9, adult; J44.0 Chronic obstructive pulmonary disease with (acute) lower respiratory infection; E66.01 Morbid (severe) obesity due to excess calories; Z20.828 Contact with and (suspected) exposure to other viral communicable diseases; G47.33 Obstructive sleep apnea (adult) (pediatric); R77.8 Other specified abnormalities of plasma proteins; M10.9 Gout, unspecified; I89.0 Lymphedema, not elsewhere classified; K21.9 Gastro-esophageal reflux disease without esophagitis; I11.0 Hypertensive heart disease with heart failure; E78.5 Hyperlipidemia, unspecified; R65.20 Severe sepsis without septic shock; Z82.49 Family history of ischemic heart disease and other diseases of the circulatory system; Z83.3 Family history of diabetes mellitus; Z79.899 Other long term (current) drug therapy
CPT/HCPCS: 36415; 71045; 71275; 80048; 80053; 80061; 81001; 82140; 82728; 82803; 82947; 83615; 83735; 83880; 84145; 84484; 85025; 85379; 85610; 85730; 86140; 87040; 87086; 93005; 93306; 94660; 94760; 96361; 96365; 96366; 96367; 96368; 96375; 96376; G0378; A9270-GY; J0456; J0696; J1100; J1644; J1940; J7050; J8540; Q9967; U0003